=== PATIENT | male | born 1970 | race African-American/Black ===

== ENCOUNTER 2018-05-13 22:36 | Emergency (ER) | payer MEDICAID ==
[~2018-05-13] VITALS: Ht 182.9 cm; Wt 87.5 kg
[2018-05-13] MEDS ORDERED: cloNIDine HCL 0.1 MG TAB ONE (23:03)
[2018-05-13] MEDS ORDERED: cloNIDine HCL 0.1 MG TAB PO ONE (23:15)
[2018-05-14 00:29] LABS: Basophils # (auto) 0.1 uL; Basophils % (auto) 2.8 % (0.0-2.0); Eosinophils # (auto) 0 uL; Hematocrit 47.6 % (41.0-53.0); Hemoglobin 16.1 g/dL (13.5-17.5); Lymphocytes # (auto) 1.5 uL; Lymphocytes % (auto) 33.2 % (10.0-50.0); Mean Corpuscular Hemoglobin 31.3 pg (28.0-32.0); Mean Corpuscular Hgb Conc. 33.8 g/dL (32.0-36.0); Mean Corpuscular Volume 92.6 fL (80.0-100.0); Monocytes # (auto) 0.6 uL; Monocytes % (auto) 13.4 % (0.0-12.0); Neutrophils # (auto) 2.2 uL; Neutrophils % (auto) 49.6 % (37.0-80.0); Nucleated Red Blood Cells % 0.3 %; Platelet Count (auto) 259 10^3/uL (140-450); Red Blood Cells 5.14 10^6/uL (4.5-5.90); White Blood Cell 4.5 10^3/uL (4.4-10.8)
[2018-05-14 00:40] LABS: Alanine Aminotransferase 31 U/L (16-61); Albumin 3.7 g/dL (3.4-5.0); Anion Gap 9 (5-15); Aspartate Aminotransferase 15 U/L (15-37); BUN/Creatinine Ratio 13.4; Blood Urea Nitrogen 16 mg/dL (7-18); Calcium 8.7 mg/dL (8.5-10.1); Carbon Dioxide 27 mmol/L (21-32); Chloride 96 mmol/L (98-107); GFR African American 84 mL/min; GFR Non-African American 69 mL/min; Glucose 302 mg/dL (74-106); Magnesium 2.1 mg/dL (1.6-2.6); Potassium 3.9 mmol/L (3.5-5.1); Sodium 132 mmol/L (136-145)
[2018-05-14 00:44] LABS: Alkaline Phosphatase 75 U/L (45-117); Bilirubin, Total 0.5 mg/dL (0.2-1.0); Total Protein 8.4 g/dL (6.4-8.2)
[2018-05-14] MEDS ORDERED: HYDROcodone-ACET 5/325MG TAB PO ONE (03:30)
[2018-05-14] MEDS ORDERED: SODIUM CHLORIDE 0.9% 1,000 ML IV ONE (03:30)
[2018-05-14] MEDS ORDERED: ONDANSETRON HCL 4 MG/2 ML VIAL IV ONE (03:30)
[2018-05-14 04:39] VITALS: BP 164/84
== END 2018-05-14 04:44 | disposition home or self-care (01) ==
LOC: ER 22:38
DX: S29.9XXA Unspecified injury of thorax, initial encounter (principal); I16.0 Hypertensive urgency; I10 Essential (primary) hypertension; E11.65 Type 2 diabetes mellitus with hyperglycemia; E78.5 Hyperlipidemia, unspecified; Z91.19 Patient's noncompliance with other medical treatment and regimen; W20.8XXA Other cause of strike by thrown, projected or falling object, initial encounter; Y93.89 Activity, other specified; Y92.89 Other specified places as the place of occurrence of the external cause; Y99.8 Other external cause status
CPT/HCPCS: 36415; 71045; 80053; 82962; 83735; 84484; 85025; 93005; 96361; 96374; 99284; J2405; J7030

== ENCOUNTER 2021-07-18 13:49 | Emergency (ER) | payer MEDICAID ==
[~2021-07-18] VITALS: Ht 180.3 cm; Wt 76.2 kg
[2021-07-18] MEDS: cloNIDine HCL 0.1 MG TAB PO ONE ×2 (14:50→18:08)
[2021-07-18] MEDS ORDERED: InsuLIN REG 1unit/0.01ml Soln (100units/ml) IV ONE (15:15)
[2021-07-18 16:05] LABS: Basophils # (auto) 0.1 10 ^3/uL (0-0.2); Basophils % (auto) 1.9 % (0.0-2.0); Eosinophils # (auto) 0 10 ^3/uL (0-0.8); Eosinophils % (auto) 0.7 % (0.0-7.0); Hematocrit 45.5 % (41.0-53.0); Hemoglobin 15.8 g/dL (13.5-17.5); Lymphocytes # (auto) 0.7 10 ^3/uL (0.4-5.4); Lymphocytes % (auto) 16.7 % (10.0-50.0); Mean Corpuscular Hemoglobin 31.7 pg (28.0-32.0); Mean Corpuscular Hgb Conc. 34.7 g/dL (32.0-36.0); Mean Corpuscular Volume 91.2 fL (80.0-100.0); Monocytes # (auto) 0.4 10 ^3/uL (0-1.3); Monocytes % (auto) 8.9 % (0.0-12.0); Neutrophils # (auto) 3.1 10 ^3/uL (1.6-8.6); Neutrophils % (auto) 71.8 % (37.0-80.0); Nucleated Red Blood Cells % 0.1 %; Red Blood Cells 4.98 10^6/uL (4.5-5.90); Red Cell Distribution Width 12.8 % (11.8-14.3); White Blood Cell 4.3 10^3/uL (4.4-10.8)
[2021-07-18 17:42] LABS: Albumin 3.8 g/dL (3.4-5.0); Calcium 9.6 mg/dL (8.5-10.1); Potassium 3.8 mmol/L (3.5-5.1)
[2021-07-18 17:56] LABS: BUN/Creatinine Ratio 13.4; Bilirubin, Total 0.4 mg/dL (0.2-1.0); Total Protein 8.2 g/dL (6.4-8.2)
[2021-07-18 19:09] VITALS: BP 165/90
== END 2021-07-18 19:15 | disposition home or self-care (01) ==
LOC: EDBD 13:49 → ER 13:49
DX: E11.65 Type 2 diabetes mellitus with hyperglycemia (principal); I10 Essential (primary) hypertension; E78.5 Hyperlipidemia, unspecified
CPT/HCPCS: 36415; 36600; 70450; 80053; 82010; 82805; 82962; 84484; 85025; 96374; 99284; J1815; 93005

== ENCOUNTER 2021-09-23 08:14 | Emergency (ER) | payer MEDICAID ==
[~2021-09-23] VITALS: Ht 182.9 cm; Wt 85.3 kg
[2021-09-23] MEDS ORDERED: InsuLIN REG 1unit/0.01ml Soln (100units/ml) IV ONE (08:45)
[2021-09-23] MEDS ORDERED: cloNIDine HCL 0.1 MG TAB PO ONE (08:45)
[2021-09-23] MEDS ORDERED: SODIUM CHLORIDE 0.9% 1,000 ML IV ONE ×2 (08:45)
[2021-09-23 10:15] LABS: Calcium 8.4 mg/dL (8.5-10.1); Potassium 3.8 mmol/L (3.5-5.1)
[2021-09-23 10:19] LABS: Basophils # (auto) 0 10 ^3/uL (0-0.2); Basophils % (auto) 0.5 % (0.0-2.0); Eosinophils # (auto) 0.1 10 ^3/uL (0-0.8); Hematocrit 39.5 % (41.0-53.0); Hemoglobin 13.5 g/dL (13.5-17.5); Lymphocytes # (auto) 0.8 10 ^3/uL (0.4-5.4); Lymphocytes % (auto) 22.7 % (10.0-50.0); Mean Corpuscular Hemoglobin 31.1 pg (28.0-32.0); Mean Corpuscular Hgb Conc. 34.2 g/dL (32.0-36.0); Mean Corpuscular Volume 90.8 fL (80.0-100.0); Monocytes # (auto) 0.4 10 ^3/uL (0-1.3); Monocytes % (auto) 11.5 % (0.0-12.0); Neutrophils # (auto) 2.3 10 ^3/uL (1.6-8.6); Neutrophils % (auto) 63.3 % (37.0-80.0); Nucleated Red Blood Cells % 0.2 %; Red Blood Cells 4.35 10^6/uL (4.5-5.90); Red Cell Distribution Width 13.6 % (11.8-14.3); White Blood Cell 3.6 10^3/uL (4.4-10.8)
[2021-09-23 10:21] LABS: Albumin 3.1 g/dL (3.4-5.0); BUN/Creatinine Ratio 14.9; Bilirubin, Total 0.6 mg/dL (0.2-1.0); Total Protein 6.9 g/dL (6.4-8.2)
[2021-09-23 11:03] VITALS: BP 144/92
== END 2021-09-23 11:02 | disposition home or self-care (01) ==
LOC: ER 08:14
DX: I16.0 Hypertensive urgency (principal); E78.5 Hyperlipidemia, unspecified; E46 Unspecified protein-calorie malnutrition; E11.65 Type 2 diabetes mellitus with hyperglycemia; I25.2 Old myocardial infarction; Z68.25 Body mass index [BMI] 25.0-25.9, adult; Z86.73 Personal history of transient ischemic attack (TIA), and cerebral infarction without residual deficits
CPT/HCPCS: 36415; 80053; 84484; 85025; 93005; 96361; 96374; 99285; J1815; J7030

== ENCOUNTER 2021-10-04 10:35 | Emergency (ER) | payer MEDICAID ==
[~2021-10-04] VITALS: Ht 182.9 cm; Wt 81.6 kg
[2021-10-04] MEDS ORDERED: LABETALOL HCL 5 MG/ML 4ML SYRINGE IV ONE (14:00)
[2021-10-04] MEDS ORDERED: SODIUM CHLORIDE 0.9% 1,000 ML IV ONE (14:00)
[2021-10-04] MEDS ORDERED: SODIUM CHLORIDE 0.9% 500 ML IVB ONE (14:00)
[2021-10-04] MEDS ORDERED: PROCHLORPERAZINE EDISYLATE 5 MG/ML 2ML VIAL IV ONE (14:00)
[2021-10-04 15:03] LABS: Basophils # (auto) 0.1 10 ^3/uL (0-0.2); Basophils % (auto) 0.9 % (0.0-2.0); Eosinophils # (auto) 0 10 ^3/uL (0-0.8); Hematocrit 45.2 % (41.0-53.0); Hemoglobin 15.5 g/dL (13.5-17.5); Lymphocytes # (auto) 0.6 10 ^3/uL (0.4-5.4); Lymphocytes % (auto) 8.4 % (10.0-50.0); Mean Corpuscular Hemoglobin 31.4 pg (28.0-32.0); Mean Corpuscular Hgb Conc. 34.3 g/dL (32.0-36.0); Mean Corpuscular Volume 91.5 fL (80.0-100.0); Monocytes # (auto) 0.3 10 ^3/uL (0-1.3); Monocytes % (auto) 4.3 % (0.0-12.0); Neutrophils # (auto) 6.4 10 ^3/uL (1.6-8.6); Neutrophils % (auto) 86.4 % (37.0-80.0); Nucleated Red Blood Cells % 0.1 %; Red Blood Cells 4.94 10^6/uL (4.5-5.90); White Blood Cell 7.4 10^3/uL (4.4-10.8)
[2021-10-04 15:05] VITALS: BP 158/90
[2021-10-04 15:25] LABS: BUN/Creatinine Ratio 15.9; Magnesium 2.5 mg/dL (1.6-2.6)
[2021-10-04 15:41] LABS: Bilirubin, Total 0.7 mg/dL (0.2-1.0); Total Protein 8.8 g/dL (6.4-8.2)
[2021-10-04 16:22] LABS: Potassium 4.8 mmol/L (3.5-5.1)
== END 2021-10-04 16:18 | disposition left against medical advice (07) ==
LOC: ER 10:35
DX: R11.2 Nausea with vomiting, unspecified (principal); I10 Essential (primary) hypertension; E11.65 Type 2 diabetes mellitus with hyperglycemia; I25.2 Old myocardial infarction; E78.5 Hyperlipidemia, unspecified; Z86.73 Personal history of transient ischemic attack (TIA), and cerebral infarction without residual deficits
CPT/HCPCS: 36415; 71046; 80053; 82962; 83690; 83735; 84443; 85025; 93005; 96361; 96374; 96375; 99285; J0780; J3490; J7040

== ENCOUNTER 2022-01-02 00:30 | Emergency (ER) | payer MEDICAID | END 2022-01-02 01:20 | disposition left against medical advice (07) | LOC: ER 00:30 | DX: R07.81 Pleurodynia (principal); Z53.21 Procedure and treatment not carried out due to patient leaving prior to being seen by health care provider ==

== ENCOUNTER 2022-03-17 05:58 | Emergency (ER) | payer MEDICAID ==
[~2022-03-17] VITALS: Ht 182.9 cm; Wt 71.4 kg
[2022-03-17 06:45] LABS: Urine WBC None Seen /hpf (0 - 3)
[2022-03-17 06:53] LABS: Urine Bacteria NONE SEEN /hpf (None Seen); Urine Blood Negative /uL (Negative); Urine Specific Gravity 1.038 (1.001-1.035)
[2022-03-17] MEDS ORDERED: SODIUM CHLORIDE 0.9% 1,000 ML IVB ONE (07:30)
[2022-03-17] MEDS ORDERED: ONDANSETRON HCL 4 MG/2 ML VIAL IV ONE (07:30)
[2022-03-17 07:32] LABS: Albumin 3.9 g/dL (3.4-5.0); Basophils # (auto) 0 10 ^3/uL (0-0.2); Basophils % (auto) 0.6 % (0.0-2.0); Calcium 9.2 mg/dL (8.5-10.1); Eosinophils # (auto) 0 10 ^3/uL (0-0.8); Hematocrit 43.8 % (41.0-53.0); Hemoglobin 14.9 g/dL (13.5-17.5); Lymphocytes # (auto) 0.6 10 ^3/uL (0.4-5.4); Lymphocytes % (auto) 11.9 % (10.0-50.0); Mean Corpuscular Hemoglobin 30.2 pg (28.0-32.0); Mean Corpuscular Hgb Conc. 33.9 g/dL (32.0-36.0); Monocytes # (auto) 0.3 10 ^3/uL (0-1.3); Monocytes % (auto) 5.6 % (0.0-12.0); Neutrophils # (auto) 4.4 10 ^3/uL (1.6-8.6); Neutrophils % (auto) 81.9 % (37.0-80.0); Nucleated Red Blood Cells % 0.3 %; Potassium 4.1 mmol/L (3.5-5.1); Red Blood Cells 4.92 10^6/uL (4.5-5.90); Red Cell Distribution Width 14.3 % (11.8-14.3); White Blood Cell 5.4 10^3/uL (4.4-10.8)
[2022-03-17 07:36] LABS: BUN/Creatinine Ratio 11.8; Bilirubin, Total 1.1 mg/dL (0.2-1.0)
[2022-03-17 08:01] LABS: Magnesium 2.1 mg/dL (1.6-2.6)
[2022-03-17] MEDS ORDERED: ONDANSETRON HCL 4 MG/2 ML VIAL ONE (08:07)
[2022-03-17 09:59] VITALS: BP 149/84
== END 2022-03-17 10:02 | disposition home or self-care (01) ==
LOC: ER 05:58
DX: E11.65 Type 2 diabetes mellitus with hyperglycemia (principal); I10 Essential (primary) hypertension; I25.2 Old myocardial infarction; Z98.61 Coronary angioplasty status; Z53.29 Procedure and treatment not carried out because of patient's decision for other reasons; Z86.73 Personal history of transient ischemic attack (TIA), and cerebral infarction without residual deficits
CPT/HCPCS: 36415; 71046; 80053; 81001; 83690; 83735; 84484; 85025; 93005; 96361; 96374; 99285; J2405; J7030

== ENCOUNTER 2022-09-18 07:23 | Emergency (ER) | payer MEDICAID ==
[~2022-09-18] VITALS: Ht 182.9 cm; Wt 76.0 kg
[2022-09-18 08:06] LABS: Basophils # (auto) 0.1 10 ^3/uL (0-0.2); Eosinophils # (auto) 0 10 ^3/uL (0-0.8); Eosinophils % (auto) 0.4 % (0.0-7.0); Hematocrit 46.2 % (41.0-53.0); Lymphocytes # (auto) 1.2 10 ^3/uL (0.4-5.4); Lymphocytes % (auto) 25.1 % (10.0-50.0); Mean Corpuscular Hemoglobin 31.3 pg (28.0-32.0); Mean Corpuscular Hgb Conc. 34.6 g/dL (32.0-36.0); Mean Corpuscular Volume 90.6 fL (80.0-100.0); Monocytes # (auto) 0.5 10 ^3/uL (0-1.3); Monocytes % (auto) 10.2 % (0.0-12.0); Neutrophils # (auto) 3.1 10 ^3/uL (1.6-8.6); Neutrophils % (auto) 63.3 % (37.0-80.0); Nucleated Red Blood Cells % 0.5 %; Red Cell Distribution Width 14.3 % (11.8-14.3); White Blood Cell 4.8 10^3/uL (4.4-10.8)
[2022-09-18] MEDS ORDERED: ONDANSETRON HCL 4 MG/2 ML VIAL IV ONE (08:15)
[2022-09-18] MEDS ORDERED: MORPHINE SULFATE 4 MG/ML SYR/VIAL IV ONE (08:15)
[2022-09-18] MEDS ORDERED: SODIUM CHLORIDE 0.9% 1,000 ML IVB ONE (08:15)
[2022-09-18] MEDS ORDERED: SODIUM CHLORIDE 0.9% 1,000 ML IV ONE (08:15)
[2022-09-18] MEDS ORDERED: THIAMINE 100mg/ml INJ (200mg/2ml VIAL) IV ONE (08:15)
[2022-09-18 08:21] LABS: Albumin 3.6 g/dL (3.4-5.0); Calcium 9.1 mg/dL (8.5-10.1); Potassium 3.1 mmol/L (3.5-5.1)
[2022-09-18 08:24] LABS: BUN/Creatinine Ratio 16.7 (10.0-20.0); Total Protein 7.9 g/dL (6.4-8.2)
[2022-09-18 08:31] LABS: Alcohol, Urine < 3.0 mg/dL (0-10); Amphetamine Screen, Urine NEGATIVE (NEGATIVE); Barbiturate Scree,Urine NEGATIVE (NEGATIVE); Benzodiazephine Screen, Urine NEGATIVE (NEGATIVE); Cannabinoid Screen, Urine NEGATIVE (NEGATIVE); Cocaine Screen, Urine NEGATIVE (NEGATIVE); Opiate Scree,Urine NEGATIVE (NEGATIVE); Phencyclidine Screen, Urine NEGATIVE (NEGATIVE)
[2022-09-18 10:00] VITALS: BP 110/72
[2022-09-18] MEDS ORDERED: POTASSIUM EFFERVESENT TAB 25 MEQ PO ONE (10:15)
== END 2022-09-18 12:36 | disposition home or self-care (01) ==
LOC: ER 07:23
DX: R10.84 Generalized abdominal pain (principal); R11.2 Nausea with vomiting, unspecified; E11.9 Type 2 diabetes mellitus without complications; E78.5 Hyperlipidemia, unspecified; I10 Essential (primary) hypertension; Z86.73 Personal history of transient ischemic attack (TIA), and cerebral infarction without residual deficits; Z79.899 Other long term (current) drug therapy
CPT/HCPCS: 36415; 74176; 80053; 80307; 83690; 85025; 96361; 96374; 96375; 99285; J2270; J2405; J3411; J7030

== ENCOUNTER 2024-11-16 08:24 | Inpatient (IN) | payer MEDICAID ==
[~2024-11-16] VITALS: Ht 182.9 cm; Wt 86.1 kg
[2024-11-16 09:02] VITALS: RESP 18; O2SAT 98
[2024-11-16 09:18] LABS: Urine Bacteria None Seen /hpf (None Seen)
--- NOTE | 2024-11-16 09:21 | ED.PDOC ---
History of Present Illness HPI Comments 54-year-old male presents to the ER with prior care history of hypertension, AFib, diabetes, mi, TIA; surgical history of PTCA x2, bilateral eye surgery in the chief complaint of lower extremity swelling. Patient reports on having bilateral lower extremity swelling for the past two days, patient states on the left lower extremity having more swelling than the right. Patient had a blood sugar of 367 in triage. Denies chills, fever, N/V/D, SOB, CP. No other associated symptoms, modifiers, recent injuries or sick contacts present at this time. Chief Complaint: Extremity Swelling Time Seen by MD: 08:55 Primary Care Provider: ? Reviewed Notes: Nurses Notes, Medications, Allergies Allergies: Coded Allergies: NO KNOWN ALLERGIES (Unverified , 10/16/15) Information Source: Patient Mode of Arrival: Ambulatory Severity: Moderate Timing: Days Duration: Since onset Prehospital treatment: None Past Medical History PAST MEDICAL HISTORY: AFIB, DM, High Lipids, HTN, ME, TIA Surgical History: PTCA (X2) Surgical History (Other): Bilateral IH surgery Family History Family History: Reviewed,noncontributory to illness, Unknown Social History Smoker: Non-Smoker Alcohol: Occasionally Drugs: Denies Drug Use Lives In: Home Constitutional: denies: chills, diaphoresis, fatigue, fever, malaise, sweats, weakness, others EENTM: denies: blurred vision, double vision, ear bleeding, ear discharge, ear drainage, ear pain, ear ringing, eye pain, eye redness, hearing loss, mouth pain, mouth swelling, nasal discharge, nose bleeding, nose congestion, nose pain, photophobia, tearing, throat pain, throat swelling, voice changes, others Respiratory: denies: cough, hemoptysis, orthopnea, SOB at rest, shortness of breath, SOB with excertion, stridor, wheezing, others Cardiovascular: reports: edema (Bilateral); denies: chest pain, dizzy spells, diaphoresis, Dyspnea on exertion, irregular heart beat, left arm pain, lighthea dedness, palpitations, PND, syncope, others Gastrointestinal: denies: abdomen distended, abdominal pain, blood streaked bowels, constipated, diarrhea, dysphagia, difficulty swallowing, hematemesis, melena, nausea, poor appetite, poor fluid intake, rectal bleeding, rectal pain, vomiting, others Genitourinary: denies: burning, dysuria, flank pain, frequency, hematuria, incontinence, penile discharge, penile sore, pain, testicle pain, testicle swelling, urgency, others Neurological: denies: dizziness, fainting, headache, left sided numbness, left sided weakness, numbness, paresthesia, pre-existing deficit, right sided numbness, right sided weakness, seizure, speech problems, tingling, tremors, we akness, others Musculoskeletal: denies: back pain, gout, joint pain, joint swelling, muscle pain, muscle stiffness, neck pain, others Integumetry: denies: bruises, change in color, change in hair/nails, dryness, laceration, lesions, lumps, rash, wounds, others Allergic/Immunocompromised: denies: Difficulty Healing, Frequent Infections, Hives, Itching, others Hematologic/Lymphatic: denies: anemia, blood clots, easy bleeding, easy bruising, swollen glands, others Endocrine: denies: excessive hunger, excessive sweating, excessive thirst, excessive urination, flushing, intolerance to cold, intolerance to heat, unexplained weight gain, unexplained weight loss, others Psychiatric: denies: anxiety, bipolar disorder, depression, hopeless, panic disorder, schizophrenia, sleepless, suicidal, others All Other Systems: Reviewed and Negative Physical Exam General Appearance: No Apparent Distress, Normal HEENT: Normal ENT Inspection, Pharynx Normal, TMs Normal Neck: Full Range of Motion, Non-Tender, Normal, Normal Inspection Respiratory: Chest Non-Tender, Lungs Clear, No Accessory Muscle Use, No Respiratory Distress, Normal Breath Sounds Cardiovascular: No Edema, No JVD, No Murmur, No Gallop, Normal Peripheral Pulses, Regular Rate/Rhythm Breast Exam: Deferred Gastrointestinal: No Organomegaly, Non Tender, No Pulsatile Mass, Normal Bowel Sounds, Soft Genitalia: Deferred Pelvic: Deferred Rectal: Deferred Extremities: No calf tenderness, Normal capillary refill, Normal inspection, Normal range of motion, Non-tender, No pedal edema Musculoskeletal : Apperance: Normal Neurologic: Alert, eyeglass cutter II-XII nml as Tested, No Motor Deficits, Normal Affect, Normal Mood, No Sensory Deficits Cerebellar Function: Normal Reflexes: Normal Skin: Dry, Normal Color, Warm Lymphatic: No Adenopathy Was a procedure done? Was a procedure done?: No EKG EKG : Pulse Rate (adult): 64 [place]: Normal Cardiac Rhythm: Afib Block: None Hypertrophy: None ST: Normal Differential Dx Considerations may include: Migraine, hypertensive emergency, ACS, electrolyte abnormality. X-Ray, Labs, Meds, VS Vital Signs Date Time Temp Pulse Resp B/P (MAP) Pulse Ox O2 Delivery O2 Flow Rate FiO2 11/16/24 09:21 64 11/16/24 09:02 18 98 Room Air* 0 21 11/16/24 08:44 97.8 65 18 208/99 (135) 97 97.8 168/115 (132) 11/16/24 08:44 97.8 65 18 168/115 (132) 97 97.8 11/16/24 08:42 64 Lab Test 11/16/24 09:51 11/16/24 08:56 11/16/24 08:52 11/16/24 08:38 Range/Units Troponin I High Sensitivity 33 36 </=54 ng/L White Blood Count 4.0 L 4.4-10.8 10^3/uL Red Blood Count 4.96 4.5-5.90 10^6/uL Hemoglobin 15.9 13.5-17.5 g/dL Hematocrit 45.9 41.0-53.0 % Mean Corpuscular Volume 92.6 80.0-100.0 fL Mean Corpuscular Hemoglobin 32.1 H 28.0-32.0 pg Mean Corpuscular Hemoglobin Concent 34.6 32.0-36.0 g/dL Red Cell Distribution Width 13.9 11.8-14.3 % Platelet Count 287 140-450 10^3/uL Mean Platelet Volume 8.9 6.9-10.8 fL Neutrophils (%) (Auto) 53.3 37.0-80.0 % Lymphocytes (%) (Auto) 30.1 10.0-50.0 % Monocytes (%) (Auto) 12.5 H 0.0-12.0 % Eosinophils (%) (Auto) 1.6 0.0-7.0 % Basophils (%) (Auto) 2.5 H 0.0-2.0 % Neutrophils # (Auto) 2.2 1.6-8.6 10 ^3/uL Lymphocytes # (Auto) 1.2 0.4-5.4 10 ^3/uL Monocytes # (Auto) 0.5 0-1.3 10 ^3/uL Eosinophils # (Auto) 0.1 0-0.8 10 ^3/uL Basophils # (Auto) 0.1 0-0.2 10 ^3/uL Nucleated Red Blood Cells 0.2 % Sodium Level 138 136-145 mmol/L Potassium Level 4.0 3.5-5.1 mmol/L Chloride Level 100 98-107 mmol/L Carbon Dioxide Level 27 20-31 mmol/L Anion Gap 11 5-15 Blood Urea Nitrogen 9 9-23 mg/dL Creatinine 1.30 0.700-1.30 mg/dL Glomerular Filtration Rate Calc 64 >90 mL/min BUN/Creatinine Ratio 6.9 L 10.0-20.0 Serum Glucose 360 H 74-106 mg/dL Calcium Level 10.4 8.7-10.4 mg/dL Urine Color Colorless Yellow Urine Clarity Clear Clear Urine pH 7.5 5.0-9.[address] 1.012 1.001-1.035 Urine Protein 1+ H Negative Urine Ketones Trace Negative Urine Blood Trace H Negative /uL Urine Nitrite Negative Negative Urine Bilirubin Negative Negative Urine Urobilinogen Normal Negative mg/dL Urine Leukocyte Esterase Negative Negative /uL Urine RBC 2 0 - 3 /hpf Urine Microscopic WBC 1 0-3 /HPF Urine Squamous Epithelial Cells None seen <5 /hpf Urine Bacteria None seen None Seen /hpf Urine Glucose 4+ H Normal mg/dL POC Glucose 367 H 70-106 mg/dl Time of 1ST Reevaluation: 09:25 Reevaluation 1ST: Unchanged Patient Education/Counseling: Diagnosis, Treatment, Prognosis Family Education/Counseling: No Family Present Departure 1 Departure Time of Disposition: 10:29 (Patient presented with hypertension and symptoms concerning for hypertensive emergency. Patient is receiving iv blood pressure medications requiring intensive monitoring. Data: 1. I ordered and reviewed the result of at least 3 labs including a CBC, BMP, and Urinalysis. 2. I independently interpreted the following tests: Chest x-ray is concerning for vascular congestion. EKG which is Normal Sinus RhythmRisk:This patient has a high risk of morbidity due to further diagnostic testing or treatment and may suffer from an acute cardiac disorder. Workup reveals hypertensive emergency and patient should be admitted for further workup. and possible expert consultation. ) Impression: Primary Impression: Hypertensive urgency Additional Impressions: Generalized weakness Uncontrolled diabetes mellitus Qualified Codes: E11.65 - Type 2 diabetes mellitus with hyperglycemia Disposition: ADMITTED INPATIENT Admit to: Med Surg Condition: Serious Critical Care Note Critical Care Time?: Yes Critical care comment: Hypertensive urgency Authorized and Performed by: Nubia Gannon MD Total critical care time: Approximately 39 minutes Due to a high probability of clinically significant, life threatening deterioration, the patient required my highest level of preparedness to intervene emergently and I personally spent this critical care time directly and personally managing the patient. This critical care time included obtaining a history; examining the patient; pulse oximetry; ordering and review of studies; arranging urgent treatment with development of a management plan; evaluation of patient's response to treatment; frequent reassessment; and, discussions with other providers. This critical care time was performed to assess and manage the high probability of imminent, life-threatening deterioration that could result in multi-organ failure. It was exclusive of separately billable procedures and treating other patients and teaching time. Please see my other sections and the rest of the note for further information on patient assessment and treatment. Stability Stability form required: No I personally scribed for NUBIA GANNON MD ([email or web address]) on 11/16/24 at 09:21. Elec tronically submitted by Lawrence Bowden ([email or web address]). NUBIA GANNON MD Nov 16, 2024 09:21
[2024-11-16 09:25] LABS: Basophils # (auto) 0.1 10 ^3/uL (0-0.2); Basophils % (auto) 2.5 % (0.0-2.0); Eosinophils # (auto) 0.1 10 ^3/uL (0-0.8); Eosinophils % (auto) 1.6 % (0.0-7.0); Hematocrit 45.9 % (41.0-53.0); Hemoglobin 15.9 g/dL (13.5-17.5); Lymphocytes # (auto) 1.2 10 ^3/uL (0.4-5.4); Lymphocytes % (auto) 30.1 % (10.0-50.0); Mean Corpuscular Hemoglobin 32.1 pg (28.0-32.0); Mean Corpuscular Hgb Conc. 34.6 g/dL (32.0-36.0); Mean Corpuscular Volume 92.6 fL (80.0-100.0); Monocytes # (auto) 0.5 10 ^3/uL (0-1.3); Monocytes % (auto) 12.5 % (0.0-12.0); Neutrophils # (auto) 2.2 10 ^3/uL (1.6-8.6); Neutrophils % (auto) 53.3 % (37.0-80.0); Nucleated Red Blood Cells % 0.2 %; Platelet Count (auto) 287 10^3/uL (140-450); Red Blood Cells 4.96 10^6/uL (4.5-5.90); Red Cell Distribution Width 13.9 % (11.8-14.3)
--- NOTE | 2024-11-16 09:27 | DVH ---
EXAM: XY CHEST PORTABLE HISTORY: lower extremity swelling COMPARISON: Comparison is made with report of chest x-ray dated 03/17/2022, although no images were m katia available for viewing. TECHNIQUE: Portable AP view of the chest was performed. FINDINGS: Lung volumes are somewhat low. There is mild interstitial prominence. No pneumothorax or consolidativ e infiltrates. The heart is not enlarged. IMPRESSION: Mild interstitial prominence may be due to reactive airways disease or mild CHF. This appearance may be exaggerated by low lung volumes.
[2024-11-16 09:31] LABS: Chloride 100 mmol/L (98-107); Sodium 138 mmol/L (136-145)
[2024-11-16 09:32] LABS: Anion Gap 11 (5-15); Carbon Dioxide 27 mmol/L (20-31)
[2024-11-16 09:33] LABS: Calcium 10.4 mg/dL (8.7-10.4)
[2024-11-16 09:37] LABS: BUN/Creatinine Ratio 6.9 (10.0-20.0); Blood Urea Nitrogen 9 mg/dL (9-23); Glucose 360 mg/dL (74-106)
[2024-11-16 09:37] LABS: Urine Blood TRACE /uL (Negative); Urine Clarity Clear (Clear); Urine Color Colorless (Yellow); Urine Protein, UAD 1+ (Negative); Urine Specific Gravity 1.012 (1.001-1.035); Urine Squamous Epithelial Cell None Seen /hpf (<5); Urine Urobilinogen Normal (Negative); Urine WBC 1 /HPF (0-3); Urine pH 7.5 (5.0-9.0)
[2024-11-16] MEDS ORDERED: LISI-285 PO (10:43)
[2024-11-16] MEDS ORDERED: AMLO1TAB23 PO (10:43)
[2024-11-16] MEDS ORDERED: SITA100T7 PO (10:43)
[2024-11-16] MEDS ORDERED: [UNRECOGNIZED DRUG - CODE] PO (10:43)
[2024-11-16] MEDS ORDERED: ATOR40TA52 PO (10:43)
[2024-11-16] MEDS ORDERED: ASPI-325 PO (10:43)
[2024-11-16] MEDS ORDERED: METO-289 PO (10:43)
[2024-11-16] MEDS: hydrALAZINE HCL 20 MG/ML VL IV ONE (11:13)
[2024-11-16] MEDS: InsuLIN REG 1unit/0.01ml Soln (100units/ml) IV ONE (11:20)
[2024-11-16] MEDS ORDERED: MORPHINE SULFATE INJ 2 MG/ml SYRG IV PRN (12:30)
[2024-11-16] MEDS ORDERED: NITROGLYCERIN 0.4 MG SL TAB SL PRN (12:30)
[2024-11-16] MEDS ORDERED: HYDROcodone-ACET 5/325MG TAB PO PRN (12:30)
[2024-11-16] MEDS ORDERED: ACETAMINOPHEN 325 MG TAB PO PRN (12:30)
[2024-11-16] MEDS ORDERED: DOCUSATE SOD 100 MG CAP PO PRN (12:30)
[2024-11-16] MEDS ORDERED: ONDANSETRON HCL 4 MG/2 ML VIAL IV PRN (12:30)
[2024-11-16] MEDS ORDERED: [UNRECOGNIZED DRUG - CODE] SUBCUT (12:31)
--- NOTE | 2024-11-16 12:44 | DVHHP2 ---
History of Present Illness Reason for Visit: Lower extremity swelling History of Present Illness Vishal Bernard is a 54-year-old male with past medical history of hypertension, hyperlipidemia, ME, diabetes, and TIA who came to the hospital for bilateral lower extremity swelling. Patient states his legs began to swelling about 3 days ago. He states he does not like taking medications daily so he takes them 3-4 times a week. On the day he does not take his medications he takes natural, home remedies. Cardiovascular: HTN, ME, hyperipidemia Endocrine: Diabetes Past Surgical History: Other (PTCA 2006-2 cardiac stents placed) Smoke: No ALCOHOL: heavy Drugs: None Lives: with Family Domestic Violence: Neg Review of Systems Constitutional: No: Fever, Chills, Sweats, Weakness, Malaise, Other Eyes: No: Pain, Vision change, Conjunctivae inflammation, Eyelid inflammation, Other, Redness ENT: No: Ear pain, Ear discharge, Nose pain, Nose discharge, Nose congestion, Mouth pain, Mouth swelling, Throat pain, Throat swelling, Other Respiratory: No: Cough, Dry, Shortness of breath, SOB with excertion, Wheezing, Hemoptysis, Pleuritic Pain, Sputum, Wheezing, Other Cardiovascular: Edema (bilateral lower extremities); No: Chest Pain, Palpitations, Orthopnea, Paroxysmal Noc. Dyspnea, Lt Headedness, Other Gastrointestinal: No: Nausea, Vomiting, Abdominal Pain, Diarrhea, Constipation, Melena, Hematochezia, Other Genitourinary: No Dysuria, No Frequency, No Incontinence, No Hematuria, No Retention, No Other Musculoskeletal: No: other, neck pain, shoulder pain, arm pain, back pain, hand pain, leg pain, foot pain Skin: No: Rash, Lesions, Jaundice, Bruising, Other Neurological: No: Weakness, Numbness, Incoordination, Change in speech, Confusion, Seizures, Other Allergies: Coded Allergies: NO KNOWN ALLERGIES (Unverified , 10/16/15) Medications Current Medications Medications Dose Ordered Sig/Cory Route Start Time Stop Time Status Last Admin Dose Admin Sodium Chloride 10 ml Q8HR IV 11/16/24 14:00 UNV Acetaminophen/ Hydrocodone Bitart 1 tab Q4HP PRN PO 11/16/24 12:30 UNV Ondansetron HCl 4 mg Q4HP PRN IV 11/16/24 12:30 UNV Docusate Sodium 100 mg BIDPRN PRN PO 11/16/24 12:30 UNV Acetaminophen 650 mg Q6HP PRN PO 11/16/24 12:30 UNV Nitroglycerin 0.4 mg Q5MINP PRN SL 11/16/24 12:30 UNV Morphine Sulfate 2 mg Q30M PRN IV 11/16/24 12:30 UNV Exam Vital Signs Vital Signs Date Time Temp Pulse Resp B/P (MAP) Pulse Ox O2 Delivery O2 Flow Rate FiO2 11/16/24 11:13 205/95 11/16/24 11:02 98.6 58 16 95 98.6 11/16/24 09:02 Room Air* 0 21 General Appearance: Alert, Oriented X3, Cooperative, mild distress HEENT: Atraumatic, PERRLA Respiratory: Clear to auscultation, Normal air movement Cardiovascular: Regular rate, Normal S1, Normal S2, No murmurs Abdominal: Normal bowel sounds, Soft, No tenderness, No hepatospenomegaly Extremities: No clubbing, No cyanosis, Normal pulses, No tenderness/swelling, Other (bilateral lower extremity edema) Skin: No rashes, No breakdown, No significant lesion Neuro: Normal gait, Normal speech, Strength at 5/5 X4 ext Psych/Mental Status: Mental status NL Labs/Xrays Labs Test 11/16/24 11:50 11/16/24 11:08 11/16/24 08:56 11/16/24 08:52 Range/Units Troponin I High Sensitivity 31 </=54 ng/L POC Glucose 321 H 70-106 mg/dl White Blood Count 4.0 L 4.4-10.8 10^3/uL Red Blood Count 4.96 4.5-5.90 10^6/uL Hemoglobin 15.9 13.5-17.5 g/dL Hematocrit 45.9 41.0-53.0 % Mean Corpuscular Volume 92.6 80.0-100.0 fL Mean Corpuscular Hemoglobin 32.1 H 28.0-32.0 pg Mean Corpuscular Hemoglobin Concent 34.6 32.0-36.0 g/dL Red Cell Distribution Width 13.9 11.8-14.3 % Platelet Count 287 140-450 10^3/uL Mean Platelet Volume 8.9 6.9-10.8 fL Neutrophils (%) (Auto) 53.3 37.0-80.0 % Lymphocytes (%) (Auto) 30.1 10.0-50.0 % Monocytes (%) (Auto) 12.5 H 0.0-12.0 % Eosinophils (%) (Auto) 1.6 0.0-7.0 % Basophils (%) (Auto) 2.5 H 0.0-2.0 % Neutrophils # (Auto) 2.2 1.6-8.6 10 ^3/uL Lymphocytes # (Auto) 1.2 0.4-5.4 10 ^3/uL Monocytes # (Auto) 0.5 0-1.3 10 ^3/uL Eosinophils # (Auto) 0.1 0-0.8 10 ^3/uL Basophils # (Auto) 0.1 0-0.2 10 ^3/uL Nucleated Red Blood Cells 0.2 % Sodium Level 138 136-145 mmol/L Potassium Level 4.0 3.5-5.1 mmol/L Chloride Level 100 98-107 mmol/L Carbon Dioxide Level 27 20-31 mmol/L Anion Gap 11 5-15 Blood Urea Nitrogen 9 9-23 mg/dL Creatinine 1.30 0.700-1.30 mg/dL Glomerular Filtration Rate Calc 64 >90 mL/min BUN/Creatinine Ratio 6.9 L 10.0-20.0 Serum Glucose 360 H 74-106 mg/dL Calcium Level 10.4 8.7-10.4 mg/dL Urine Color Colorless Yellow Urine Clarity Clear Clear Urine pH 7.5 5.0-9.0 Urine Specific [place] 1.012 1.001-1.035 Urine Protein 1+ H Negative Urine Ketones Trace Negative Urine Blood Trace H Negative /uL Urine Nitrite Negative Negative Urine Bilirubin Negative Negative Urine Urobilinogen Normal Negative mg/dL Urine Leukocyte Esterase Negative Negative /uL Urine RBC 2 0 - 3 /hpf Urine Microscopic WBC 1 0-3 /HPF Urine Squamous Epithelial Cells None seen <5 /hpf Urine Bacteria None seen None Seen /hpf Urine Glucose 4+ H Normal mg/dL EXAM: XY CHEST PORTABLE FINDINGS: Lung volumes are somewhat low. There is mild interstitial prominence. No pneumothorax or consolidative infiltrates. The heart is not enlarged. IMPRESSION: Mild interstitial prominence may be due to reactive airways disease or mild CHF. This appearance may be exaggerated by low lung volumes. Assessment/Plan Assessment/Plan Assessment: Hypertensive urgency, Uncontrolled diabetes, Hyperlipidemia, Plan: Admit to Tele, ECHO, IV Lasix, Consider cardiology consult, Accu checks Q AC&HS with sliding scale, A1c, Home medications reconciled, Plan discussed with: Patient My Orders Orders - DANIELITO AGUILA Procedure Category Date Status Time Admit ADMIT 11/16/24 Transmitted 12:16 Code Status CODE 11/16/24 Transmitted 12:16 Sodium Chloride Lock PHA 11/16/24 Logged (Saline Lock Ns) 14:00 Hydrocodone-Acet PHA 11/16/24 Logged 5/325mg Tab (Nabb 12:30 Ondansetron Hcl PHA 11/16/24 Logged (Zofran) 12:30 Docusate Sodium PHA 11/16/24 Logged Capsule (Colace 12:30 Complete Blood Count LAB 11/17/24 Verified 04:00 Comprehensive LAB 11/17/24 Verified Metabolic Panel 04:00 Cardiac DIET 11/16/24 Transmitted Diet-2gna,Lofat,Lochol Lunch Condition: Critical [facility] 11/16/24 In Process 12:[address] [facility] 11/16/24 Logged (Tylenol Tablet) 12:30 Nitroglycerin PHA 11/16/24 Logged Sublingual (Ntrostat 12:30 Morphine Sulfate PHA 11/16/24 Logged Injection 12:30 Stat Ekg For Chest [facility] 11/16/24 In Process Pain 12:16 Notify Md Of Changes [facility] 11/16/24 In Process From Base 12:16 Centrifugal Separator For [facility] 11/16/24 In Process 24 Hours 12:16 Emergency Dysrhythmia [facility] 11/16/24 In Process Protocol 12:16 Rhythm Strips Once [facility] 11/16/24 In Process Every Shift 12:16 Oxygen By Nasal RT 11/16/24 Transmitted Cannula 12:16 Echo 2d Mode Cardiac US 11/16/24 Logged DOP 12:16 Date of Service: Nov 16, 2024 Billing Provider: DANIELITO AGUILA Common Visit Codes: [id number] INP/OBS CARE (MOD) DANIELITO AGUILA Nov 16, 2024 12:44
[2024-11-16] MEDS ORDERED: DEXTROSE (50%) 50ML SYRG IV PRN (12:45)
[2024-11-16] MEDS ORDERED: MORPHINE SULFATE 4 MG/ML SYR/VIAL IV PRN (13:00)
[2024-11-16] MEDS: FUROSEMIDE 40 MG/4 ML VIAL IV ONE (13:16)
[2024-11-16] MEDS: SODIUM CHLOR 0.9% PF (SALINE LOCK) 10ML VIAL/SYR IV SCH (14:19)
[2024-11-16] MEDS: cloNIDine HCL 0.1 MG TAB PO ONE (15:38)
[2024-11-16] MEDS: ACCU-CHEK COMFORT CURVE STRIP VI SCH (17:05)
[2024-11-16] MEDS: InsuLIN REG 1unit/0.01ml Soln (100units/ml) SC SCH ×2 (17:20→22:00)
[2024-11-16] MEDS: hydrALAZINE HCL 25 MG TAB PO PRN (17:34)
[2024-11-16 18:15] VITALS: BP 167/76; PULSE 60; RESP 18; TEMP 97.4; O2SAT 98
[2024-11-16 20:00] VITALS: PULSE 53; PULSE 64; RESP 18; O2SAT 98
[2024-11-16 21:00] VITALS: BP 151/90; PULSE 64; RESP 18; TEMP 97.3; O2SAT 98
[2024-11-16] MEDS ORDERED: PATIENTS OWN MEDICATION (Atorvastatin Calcium 1 TAB) PO SCH (22:00)
[2024-11-16] MEDS: ATORVASTATIN 20 MG TAB PO SCH (22:02)
[2024-11-16] MEDS: METOPROLOL SUCCINATE XL 50 MG TAB PO SCH (22:03)
[2024-11-17] VITALS (10 sets, daily range): BP systolic 119–178; BP diastolic 67–99; PULSE 48–69; RESP 16–18; TEMP 97.3–98.1; O2SAT 97–99
[2024-11-17] MEDS: MELATONIN 5 MG TAB PO ONE (01:11)
[2024-11-17] MEDS: glipiZIDE 5 MG TAB PO SCH (06:39)
[2024-11-17 07:21] LABS: Basophils # (auto) 0 10 ^3/uL (0-0.2); Basophils % (auto) 1.2 % (0.0-2.0); Eosinophils # (auto) 0.1 10 ^3/uL (0-0.8); Eosinophils % (auto) 2.2 % (0.0-7.0); Hematocrit 44.2 % (41.0-53.0); Hemoglobin 15.4 g/dL (13.5-17.5); Lymphocytes # (auto) 1.1 10 ^3/uL (0.4-5.4); Lymphocytes % (auto) 30.7 % (10.0-50.0); Mean Corpuscular Hemoglobin 32.5 pg (28.0-32.0); Mean Corpuscular Hgb Conc. 34.9 g/dL (32.0-36.0); Mean Corpuscular Volume 93.1 fL (80.0-100.0); Monocytes # (auto) 0.4 10 ^3/uL (0-1.3); Monocytes % (auto) 10.8 % (0.0-12.0); Neutrophils % (auto) 55.1 % (37.0-80.0); Nucleated Red Blood Cells % 0.2 %; Platelet Count (auto) 263 10^3/uL (140-450); Red Blood Cells 4.75 10^6/uL (4.5-5.90); Red Cell Distribution Width 13.8 % (11.8-14.3); White Blood Cell 3.6 10^3/uL (4.4-10.8)
[2024-11-17 07:48] LABS: Alanine Aminotransferase 21 U/L (7-40); Albumin 3.9 g/dL (3.2-4.8); Alkaline Phosphatase 79 U/L (46-116); Anion Gap 12 (5-15); Aspartate Aminotransferase 23 U/L (13-40); BUN/Creatinine Ratio 12.7 (10.0-20.0); Bilirubin, Total 0.8 mg/dL (0.2-1.0); Blood Urea Nitrogen 15 mg/dL (9-23); Calcium 9.8 mg/dL (8.7-10.4); Carbon Dioxide 24 mmol/L (20-31); Chloride 102 mmol/L (98-107); Potassium 3.6 mmol/L (3.5-5.1); Sodium 138 mmol/L (136-145)
[2024-11-17 07:53] LABS: Glucose 170 mg/dL (74-106)
[2024-11-17] MEDS: hydroCHLOROthiazide 25 MG TAB PO SCH (08:09)
[2024-11-17] MEDS: ASPirin-EC 81 mg tab PO SCH (08:10)
[2024-11-17] MEDS: LISINOPRIL 20 MG TAB PO SCH (08:10)
[2024-11-17] MEDS: FUROSEMIDE 20 MG/2 ML VIAL IV SCH (08:11)
[2024-11-17] MEDS: amLODIPine BESYLATE 5 MG TAB PO SCH (08:11)
[2024-11-17] MEDS ORDERED: PATIENTS OWN MEDICATION (Amlodipine Besylate 1 TAB) PO SCH (10:00)
[2024-11-17] MEDS ORDERED: PATIENTS OWN MEDICATION (Glipizide 1 TAB) PO SCH (10:00)
[2024-11-17] MEDS ORDERED: PATIENTS OWN MEDICATION (Lisinopril & Hydrochlorothiazi (Lisinopril/Hydrochlorothi) 1 TAB) PO SCH (10:00)
--- NOTE | 2024-11-17 11:07 | ECG ---
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
--- NOTE | 2024-11-17 11:31 | DVHSR ---
APPROVED REPORT EXAM: Two-dimensional and M-mode echocardiogram with Doppler and color Doppler. Blood Pressure: 205/95 mmHg INDICATION Hypertension RISK FACTORS Height: 6', Weight: 193 DIMENSIONS LVDd4.3 (3.8-5.7cm)LA (2D)4.1 (1.9-4.0cm)Aortic Root3.2 (2.0-3.7cm) LVDs2.8 (2.5-4.0cm)LA (MM) (1.9-4.0cm)Aortic Cusp Exc1.8 (1.5-2.0cm) EF (%) 64.0 (55-70%)Rt. Atrium4.1 (1.9-4.0cm)Asc. Aorta3.4 cm IVSd1.5 (0.7-1.1cm)RV (D)3.1 (1.8-2.4cm) PWd1.3 (0.7-1.1cm) Mitral Valve MitralMitral Stenosis E wave0.85m/sMV Mean GR.mmHg A wave0.79m/sMV Peak GR.mmHg E/A ratio1.12D MVAcm2 DECEL [id number] 1/2 Timems Aortic Valve Aortic ValveAortic Stenosis LVOT Diameter2.0 (1.8-2.4cm)Doppler AVAcm2 Pulmonic Valve V20.83m/s Conclusion lvef 60% severe lvh normal rv function left atrium enlarged no severe valve abnormalites noted
[2024-11-17] MEDS: POTASSIUM CHL 20 Meq TABLET PO ONE (12:00)
--- NOTE | 2024-11-17 16:47 | DVHPN2 ---
Subjective no headaches Reviewed: H&P, Labs Changes from previous H/P or p: No Changes General: Per HPI Eyes: No Pain, No Vision change, No Conjunctivae inflammation, No Eyelid inflammation, No Other, No Redness ENT: No Ear pain, No Ear discharge, No Nose pain, No Nose discharge, No Nose congestion, No Mouth pain, No Mouth swelling, No Throat pain, No Throat swelling, No Other Cardiovascular: No Chest Pain, No Palpitations, No Orthopnea, No Paroxysmal Noc. Dyspnea; Edema (bilateral lower extremities); No Lt Headedness, No Other Respiratory: No Cough, No Dry, No Shortness of breath, No SOB with excertion, No Wheezing, No Hemoptysis, No Pleuritic Pain, No Sputum, No Other Gastrointestinal: No Nausea, No Vomiting, No Abdominal Pain, No Diarrhea, No Constipation, No Melena, No Hematochezia, No Other Genitourinary: No Dysuria, No Frequency, No Incontinence, No Hematuria, No Retention, No Other Musculoskeletal: No other, No neck pain, No shoulder pain, No arm pain, No back pain, No hand pain, No leg pain, No foot pain Skin: No Rash, No Lesions, No Jaundice, No Bruising, No Other Objective Vitals Vital Signs Date Time Temp Pulse Resp B/P (MAP) Pulse Ox O2 Delivery O2 Flow Rate FiO2 11/17/24 15:18 60 17 134/79 (97) 11/17/24 13:00 97.6 97 97.6 11/17/24 07:51 Room Air* 0 21 Intake/Output Intake and Output 11/17/24 07:00 Intake Total 800 ml Balance 800 ml Intake Oral 800 ml # Voids 3 General Appearance: Alert, Oriented X3 HEENT: Atraumatic Lungs: Clear to auscultation Cardiovascular: Regular rate, Normal S1, Normal S2 Medications Current Medications Medications Dose Ordered Sig/Cory Route Start Time Stop Time Status Last Admin Dose Admin Sodium Chloride 10 ml Q8HR IV 11/16/24 14:00 11/17/24 06:34 10 ML Acetaminophen/ Hydrocodone Bitart 1 tab Q4HP PRN PO 11/16/24 12:30 Ondansetron HCl 4 mg Q4HP PRN IV 11/16/24 12:30 Docusate Sodium 100 mg BIDPRN PRN PO 11/16/24 12:30 Acetaminophen 650 mg Q6HP PRN PO 11/16/24 12:30 Nitroglycerin 0.4 mg Q5MINP PRN SL 11/16/24 12:30 Morphine Sulfate 2 mg Q30M PRN IV 11/16/24 12:30 UNV Aspirin 81 mg DAILY PO 11/17/24 10:00 11/17/24 08:10 81 MG Metoprolol Succinate 50 mg BID PO 11/16/24 22:00 11/17/24 08:08 50 MG Patient Own Medication 1 tab DAILY PO 11/17/24 10:00 UNV Patient Own Medication 1 tab HS PO 11/16/24 22:00 UNV Patient Own Medication 1 tab DAILY PO 11/17/24 10:00 UNV Patient Own Medication 1 tab DAILY PO 11/17/24 10:00 UNV Patient Own Medication 1 tab DAILY PO 11/17/24 10:00 Furosemide 20 mg DAILY IV 11/17/24 10:00 11/17/24 08:11 20 MG Diagnostic Test (Pha) 1 strip ACHS 11/16/24 17:00 11/17/24 11:30 1 STRIP Insulin Human Regular HS SC 11/16/24 22:00 Insulin Human Regular AC SC 11/16/24 17:00 11/17/24 11:30 9 UNITS Dextrose 50 ml UD PRN IV 11/16/24 12:45 Morphine Sulfate 2 mg Q30M PRN IV 11/16/24 13:00 Amlodipine Besylate 10 mg DAILY PO 11/17/24 10:00 11/17/24 08:11 10 MG Glipizide 2.5 mg IQAM PO 11/17/24 07:00 11/17/24 06:39 2.5 MG Atorvastatin Calcium 40 mg HS PO 11/16/24 22:00 11/16/24 22:02 40 MG Lisinopril 20 mg DAILY PO 11/17/24 10:00 11/17/24 08:10 20 MG Hydrochlorothiazide 12.5 mg DAILY PO 11/17/24 10:00 11/17/24 08:09 12.5 MG Hydralazine HCl 25 mg Q6HP PRN PO 11/16/24 15:30 11/17/24 11:43 25 MG Insulin Glargine 16 units HS SC 11/17/24 22:00 Melatonin 10 mg HSPRN PO 11/17/24 22:00 Laboratory Results Laboratory Tests 11/17/24 06:31 Chemistry Test 11/17/24 06:31 Albumin 3.9 g/dL (3.2-4.8) Calcium Level 9.8 mg/dL (8.7-10.4) Total Protein 7.0 g/dL (5.7-8.2) LFT Test 11/17/24 06:31 Alanine Aminotransferase (ALT) 21 U/L (7-40) Alkaline Phosphatase 79 U/L (46-116) Aspartate Amino Transferase (AST) 23 U/L (13-40) Total Bilirubin 0.8 mg/dL (0.2-1.0) HgA1c, TSH Test 11/17/24 06:31 Hemoglobin A1c 13.7 % A1C (<5.7) H Urinalysis Test 11/16/24 08:52 Urine Color Colorless (Yellow) Urine Clarity Clear (Clear) Urine pH 7.5 (5.0-9.0) Urine Specific [place] 1.012 (1.001-1.035) Urine Protein 1+ (Negative) H Urine Ketones Trace (Negative) Urine Blood Trace /uL (Negative) H Urine Nitrite Negative (Negative) Urine Bilirubin Negative (Negative) Urine Urobilinogen Normal mg/dL (Negative) Urine Leukocyte Esterase Negative /uL (Negative) Urine RBC 2 /hpf (0 - 3) Urine Microscopic WBC 1 /HPF (0-3) Urine Squamous Epithelial Cells None seen /hpf (<5) Urine Bacteria None seen /hpf (None Seen) Urine Glucose 4+ mg/dL (Normal) H Assessment/Plan Assessment/Plan Hypertensive urgency, Uncontrolled diabetes, with hyperglycemia Hyperlipidemia, Continue home mediations echo pending will continue adjusting home antihypertensives Plan discussed with: Patient Date of Service: Nov 17, 2024 Billing Provider: FAITH HILL MD Common Visit Codes: [id number] INP/OBS CARE(HIGH) FAITH HILL MD Nov 17, 2024 16:47
[2024-11-17] MEDS: MELATONIN 5 MG TAB PO SCH (22:02)
[2024-11-17] MEDS: INSULIN LANTUS (GLARGINE) 1 /0.01ml (100units/ml) SC SCH (22:18)
[2024-11-18 01:00] VITALS: BP 150/87; PULSE 57; RESP 18; TEMP 98.1; O2SAT 99
[2024-11-18 05:00] VITALS: BP 160/95; PULSE 49; RESP 20; TEMP 97.4; O2SAT 97
[2024-11-18 08:00] VITALS: PULSE 50
[2024-11-18 08:43] VITALS: BP 106/76; PULSE 63; RESP 17; TEMP 98.4; O2SAT 96
[2024-11-18] MEDS ORDERED: METO-6 PO (11:55)
[2024-11-18] MEDS ORDERED: LISI20TA56 PO (11:55)
[2024-11-18] MEDS ORDERED: SITA100T7 PO (11:55)
[2024-11-18] MEDS ORDERED: INSU1INJ26 SC (11:55)
[2024-11-18] MEDS ORDERED: HYDR25TA5 PO (11:55)
[2024-11-18] MEDS ORDERED: AMLO1TAB23 PO (11:55)
[2024-11-18] MEDS ORDERED: [UNRECOGNIZED DRUG - CODE] PO (11:55)
[2024-11-18] MEDS ORDERED: FURO1TAB33 PO (11:56)
[2024-11-18 12:44] VITALS: BP 106/76; PULSE 63; RESP 17; TEMP 98.4; O2SAT 96
--- NOTE | 2024-11-18 12:48 | DVHDS2 ---
Discharge Summary Date of Admission Nov 16, 2024 at 12:16 Date of Discharge: Nov 18, 2024 Labs/Diagnostic Data: Laboratory Results Test 11/18/24 11:25 11/17/24 06:31 11/16/24 11:50 11/16/24 08:52 POC Glucose 326 mg/dl (70-106) White Blood Count 3.6 10^3/uL (4.4-10.8) Red Blood Count 4.75 10^6/uL (4.5-5.90) Hemoglobin 15.4 g/dL (13.5-17.5) Hematocrit 44.2 % (41.0-53.0) Mean Corpuscular Volume 93.1 fL (80.0-100.0) Mean Corpuscular Hemoglobin 32.5 pg (28.0-32.0) Mean Corpuscular Hemoglobin Concent 34.9 g/dL (32.0-36.0) Red Cell Distribution Width 13.8 % (11.8-14.3) Platelet Count 263 10^3/uL (140-450) Mean Platelet Volume 8.9 fL (6.9-10.8) Neutrophils (%) (Auto) 55.1 % (37.0-80.0) Lymphocytes (%) (Auto) 30.7 % (10.0-50.0) Monocytes (%) (Auto) 10.8 % (0.0-12.0) Eosinophils (%) (Auto) 2.2 % (0.0-7.0) Basophils (%) (Auto) 1.2 % (0.0-2.0) Neutrophils # (Auto) 2.0 10 ^3/uL (1.6-8.6) Lymphocytes # (Auto) 1.1 10 ^3/uL (0.4-5.4) Monocytes # (Auto) 0.4 10 ^3/uL (0-1.3) Eosinophils # (Auto) 0.1 10 ^3/uL (0-0.8) Basophils # (Auto) 0 10 ^3/uL (0-0.2) Nucleated Red Blood Cells 0.2 % Sodium Level 138 mmol/L (136-145) Potassium Level 3.6 mmol/L (3.5-5.1) Chloride Level 102 mmol/L (98-107) Carbon Dioxide Level 24 mmol/L (20-31) Anion Gap 12 (5-15) Blood Urea Nitrogen 15 mg/dL (9-23) Creatinine 1.18 mg/dL (0.700-1.30) Glomerular Filtration Rate Calc 72 mL/min (>90) BUN/Creatinine Ratio 12.7 (10.0-20.0) Serum Glucose 170 mg/dL (74-106) Hemoglobin A1c 13.7 % A1C (<5.7) Calcium Level 9.8 mg/dL (8.7-10.4) Total Bilirubin 0.8 mg/dL (0.2-1.0) Aspartate Amino Transferase (AST) 23 U/L (13-40) Alanine Aminotransferase (ALT) 21 U/L (7-40) Alkaline Phosphatase 79 U/L (46-116) Total Protein 7.0 g/dL (5.7-8.2) Albumin 3.9 g/dL (3.2-4.8) Troponin I High Sensitivity 31 ng/L (</=54) Urine Color Colorless (Yellow) Urine Clarity Clear (Clear) Urine pH 7.5 (5.0-9.0) Urine Specific [place] 1.012 (1.001-1.035) Urine Protein 1+ (Negative) Urine Ketones Trace (Negative) Urine Blood Trace /uL (Negative) Urine Nitrite Negative (Negative) Urine Bilirubin Negative (Negative) Urine Urobilinogen Normal mg/dL (Negative) Urine Leukocyte Esterase Negative /uL (Negative) Urine RBC 2 /hpf (0 - 3) Urine Microscopic WBC 1 /HPF (0-3) Urine Squamous Epithelial Cells None seen /hpf (<5) Urine Bacteria None seen /hpf (None Seen) Urine Glucose 4+ mg/dL (Normal) Other Laboratory Tests 11/17/24 06:31 Brief Hx & Hospital Course: 4-year-old male with past medical history of hypertension, hyperlipidemia, [place], diabetes, and TIA who came to the hospital for bilateral lower extremity swelling. Patient states his legs began to swelling about 3 days ago. He states he does not like taking medications daily so he takes them 3-4 times a week. On the day he does not take his medications he takes natural, home remedies. During hospital stay adjusted medications and on oral antihypertensives, bp better. Condition at Discharge: Good Final Diagnosis/Problems List diabetes type 2 uncontrolled with hyperglycemia HTN urgency Discharge Disposition: Home Discharge Instruct/Medications Diet: Regular Activity: No Restrictions, As Tolerated Follow Up/Referral: PCP in 7 days Medications: lisinopril, HCTZ, amlodipine, lasix, metoprolol, 70/30 insulin Discharge Statement: "Patient was advised to return to the ER or call 911 if any headaches, dizziness, shortness of breath, chest pain, abdominal pain, bleeding, fevers, or worsening of medical condition. Patient was counseled about treatment plan, medications, possible side effects, patientverbalized understanding. All questions were answered to the best of my ability. This discharge took greater then 30 minutes in planning, reviewing documentation, counseling the patient, and discussing with other team members." ASSESSMENT ASSESSMENT Assessment diabetes type 2 uncontrolled with hyperglycemia HTN urgency Date of Service: Nov 18, 2024 Billing Provider: FAITH HILL MD Common Visit Codes: 92350-BQX/OBS DISCH DAY >30min FAITH HILL MD Nov 18, 2024 12:48
[2024-11-18 13:00] VITALS: BP 144/89; PULSE 52; RESP 18; TEMP 97.6; O2SAT 98
== END 2024-11-18 15:02 | disposition home or self-care (01) | DRG 194 ==
LOC: ER 08:24 → OVERFLOW 12:16 → TELE-WESTW 18:05
PROVIDERS: ADMIT Hospitalist; ATTEND Hospitalist
DX: I11.0 Hypertensive heart disease with heart failure (principal); E11.65 Type 2 diabetes mellitus with hyperglycemia; I50.31 Acute diastolic (congestive) heart failure; I16.0 Hypertensive urgency; E78.5 Hyperlipidemia, unspecified; I48.91 Unspecified atrial fibrillation; Z86.73 Personal history of transient ischemic attack (TIA), and cerebral infarction without residual deficits; Z95.5 Presence of coronary angioplasty implant and graft; I25.2 Old myocardial infarction
CPT/HCPCS: 36415; 71045; 80048; 80053; 81001; 82962; 83036; 84484; 85025; 93005; 93306; 96372; 96374; 96375; 99291; G0378; J1815

== ENCOUNTER 2025-01-12 06:25 | Inpatient (IN) | payer MEDICAID ==
[2025-01-12] VITALS (24 sets, daily range): BP systolic 116–198; BP diastolic 73–109; PULSE 63–127; RESP 13–43; TEMP 97–98.4; O2SAT 75–100
[~2025-01-12] VITALS: Ht 182.9 cm; Wt 92.8 kg
[~2025-01-12 06:25] MED LIST: AMLO1TAB23 PO; ASPI-325 PO; ATOR40TA52 PO; FURO1TAB33 PO; HYDR25TA5 PO; INSU1INJ26 SC; LISI20TA56 PO; METO-6 PO; SITA100T7 PO; [UNRECOGNIZED DRUG - CODE] PO
--- NOTE | 2025-01-12 07:06 | ED.PDOC ---
SOB-HPI HPI Comments 54 y/o M, BIBA, with PMHx of HTN, HLD, [place], and HTN presents to the ED for CC of shortness of breath. 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 EMS relays, upon arrival to scene patient was found to be stating at 79% on R.A. In route to the ED, patient was given a breathing TX and saturation levels improved to 95%. Patient denies fever, chest pain, palpitations, nasal congestion, or sore-throat. No other symptoms or modifying factors present at this time. Chief Complaint: Shortness of Breath Time Seen by MD: 06:35 Primary Care Provider: ? Reviewed notes: Nurses Notes, Talk Show Host Notes, Medications, Allergies Information Source: Patient, Emergency Med Personnel Mode of Arrival: EMS Severity: Moderate Timing: Minutes Duration: Since onset Context: At Rest PE Risk Factors: None History of: None Prehospital treatment: Breathing Tx Modifying Factors: Nothing Associated Signs and Symptoms: Cough If cough with SOB: Productive Past Medical History PAST MEDICAL HISTORY: AFIB, DM, High Lipids, HTN, [place], TIA Surgical History: PTCA Family History Family History: Reviewed,noncontributory to illness, Unknown Social History Smoker: Non-Smoker Alcohol: Occasionally Drugs: Denies Drug Use Lives In: Home Constitutional: denies: chills, diaphoresis, fatigue, fever, malaise, sweats, weakness, others EENTM: denies: blurred vision, double vision, ear bleeding, ear discharge, ear drainage, ear pain, ear ringing, eye pain, eye redness, hearing loss, mouth pain, mouth swelling, nasal discharge, nose bleeding, nose congestion, nose pain, photophobia, tearing, throat pain, throat swelling, voice changes, others Respiratory: reports: cough, shortness of breath; denies: hemoptysis, orthopnea, SOB at rest, SOB with excertion, stridor, wheezing, others Cardiovascular: denies: chest pain, dizzy spells, diaphoresis, Dyspnea on exertion, edema, irregular heart beat, left arm pain, lightheadedness, palpitations, PND, syncope, others Gastrointestinal: denies: abdomen distended, abdominal pain, blood streaked bowels, constipated, diarrhea, dysphagia, difficulty swallowing, hematemesis, melena, nausea, poor appetite, poor fluid intake, rectal bleeding, rectal pain, vomiting, others Genitourinary: denies: burning, dysuria, flank pain, frequency, hematuria, incontinence, penile discharge, penile sore, pain, testicle pain, testicle swelling, urgency, others Neurological: denies: dizziness, fainting, headache, left sided numbness, left sided weakness, numbness, paresthesia, pre-existing deficit, right sided numbness, right sided weakness, seizure, speech problems, tingling, tremors, weakness, others Musculoskeletal: denies: back pain, gout, joint pain, joint swelling, muscle pain, muscle stiffness, neck pain, others Integumetry: denies: bruises, change in color, change in hair/nails, dryness, laceration, lesions, lumps, rash, wounds, others Allergic/Immunocompromised: denies: Difficulty Healing, Frequent Infections, Hives, Itching, others Hematologic/Lymphatic: denies: anemia, blood clots, easy bleeding, easy bruising, swollen glands, others Endocrine: denies: excessive hunger, excessive sweating, excessive thirst, excessive urination, flushing, intolerance to cold, intolerance to heat, unexplained weight gain, unexplained weight loss, others Psychiatric: denies: anxiety, bipolar disorder, depression, hopeless, panic disorder, schizophrenia, sleepless, suicidal, others All Other Systems: Reviewed and Negative Physical Exam General Appearance: Moderate Distress HEENT: Normal ENT Inspection, Pharynx Normal, TMs Normal Neck: Full Range of Motion, Non-Tender, Normal, Normal Inspection Respiratory: Respiratory Distress, Other (Coarse breath sounds) Cardiovascular: Irregular, Tachycardia Breast Exam: Deferred Gastrointestinal: No Organomegaly, Non Tender, No Pulsatile Mass, Normal Bowel Sounds, Soft Genitalia: Deferred Pelvic: Deferred Rectal: Deferred Extremities: No calf tenderness, Normal capillary refill, Normal inspection, Normal range of motion, Non-tender, No pedal edema Musculoskeletal : Apperance: Normal Neurologic: Alert, production posting clerk II-XII nml as Tested, No Motor Deficits, Normal Affect, Normal Mood, No Sensory Deficits Cerebellar Function: Normal Reflexes: Normal Skin: Dry, Normal Color, Warm Peripheral Pulses: 3+ Radial (R), 3+ Radial (L) Lymphatic: No Adenopathy EKG EKG : Pulse Rate (adult): 94 [place]: Normal Cardiac Rhythm: Afib Block: None Hypertrophy: None ST: Normal Was a procedure done? Was a procedure done?: No Differential Dx Differential Diagnosis: Anxiety, Asthma, Bronchitis, CHF, COPD, Pneumonia, Pulmonary Embolism, Sinusitis, Pharyngitis, URI X-Ray, Labs, Meds, VS Vital Signs Date Time Temp Pulse Resp B/P (MAP) Pulse Ox O2 Delivery O2 Flow Rate FiO2 01/12/25 08:13 82 164/86 01/12/25 08:00 98.4 81 17 164/86 (112) 95 98.4 01/12/25 08:00 85 01/12/25 07:54 27 90 Nasal Cannula* 4 36 01/12/25 07:35 90 01/12/25 07:34 90 01/12/25 07:13 110 186/107 01/12/25 07:08 94 01/12/25 06:34 99.6 84 28 201/113 95 99.6 Lab Test 01/12/25 07:50 01/12/25 07:46 01/12/25 06:46 Range/Units Troponin I High Sensitivity 3427 *H 2702 *H </=54 ng/L Sodium Level 141 136-145 mmol/L Potassium Level 3.8 3.5-5.1 mmol/L Chloride Level 107 98-107 mmol/L Carbon Dioxide Level 21 20-31 mmol/L Anion Gap 13 5-15 Blood Urea Nitrogen 16 9-23 mg/dL Creatinine 1.27 0.700-1.30 mg/dL Glomerular Filtration Rate Calc 66 >90 mL/min BUN/Creatinine Ratio 12.6 10.0-20.0 Serum Glucose 306 H 74-106 mg/dL Calcium Level 8.8 8.7-10.4 mg/dL White Blood Count 5.9 4.4-10.8 10^3/uL Red Blood Count 3.28 L 4.5-5.90 10^6/uL Hemoglobin 10.6 L 13.5-17.5 g/dL Hematocrit 31.2 L 41.0-53.0 % Mean Corpuscular Volume 95.2 80.0-100.0 fL Mean Corpuscular Hemoglobin 32.4 H 28.0-32.0 pg Mean Corpuscular Hemoglobin Concent 34.0 32.0-36.0 g/dL Red Cell Distribution Width 14.4 H 11.8-14.3 % Platelet Count 174 140-450 10^3/uL Mean Platelet Volume 9.0 6.9-10.8 fL Neutrophils (%) (Auto) 67.5 37.0-80.0 % Lymphocytes (%) (Auto) 22.8 10.0-50.0 % Monocytes (%) (Auto) 8.0 0.0-12.0 % Eosinophils (%) (Auto) 0.5 0.0-7.0 % Basophils (%) (Auto) 1.2 0.0-2.0 % Neutrophils # (Auto) 4.0 1.6-8.6 10 ^3/uL Lymphocytes # (Auto) 1.3 0.4-5.4 10 ^3/uL Monocytes # (Auto) 0.5 0-1.3 10 ^3/uL Eosinophils # (Auto) 0 0-0.8 10 ^3/uL Basophils # (Auto) 0.1 0-0.2 10 ^3/uL Nucleated Red Blood Cells 0.1 % Prothrombin Time 10.6 9.3-11.8 sec Prothrombin Time INR 1.00 0.9-1.15 Activated Partial Thromboplast Time 26.6 24.5-34.5 SEC Current Medications Medications (Trade) Dose Ordered Sig/Cory Route Start Time Stop Time Status Last Admin Metoprolol Tartrate (Lopressor) 5 mg ONCE ONCE IV 01/12/25 06:45 01/12/25 06:46 DC 01/12/25 07:13 Lorazepam (Ativan Inj) 1 mg ONCE ONCE IV 01/12/25 07:15 01/12/25 07:16 DC 01/12/25 07:46 Heparin Sodium (Porcine) 5,000 units ONCE ONCE IV 01/12/25 07:45 01/12/25 07:46 DC 01/12/25 07:41 Patient alert. Shortness a breath. Blood pressure elevated. Was on breathing treatment. EKG does show irregular rhythm. Was given metoprolol. Anxious. Was given Ativan. Reviewed his history. Explained to the patient. Continue monitoring. [address] [address] Ph: [phone] DIAGNOSTIC IMAGING Diagnostic Imaging Report : [id number] Signed PATIENT: TANK JULIO ACCT: [id number] UNIT: [id number] : 1970 LOC: ER ROOM / BED: / AGE / SEX: 54 / M ADM STATUS: REG ER SERVICE [id number] ORDERING PHYSICIAN: MARION PERSAUD MD PROCEDURE(s): CXRP - CHEST PORTABLE REASON: sob ORDER NUMBER(s): [id number], ACCESSION NUMBER(s): [id number] INDICATION: sob TECHNIQUE: Portable AP view of the chest was performed. COMPARISON: XY CHEST PORTABLE on DOS: 11/16/24, CHEST TWO VIEWS ROUTINE on DOS: 03/17/22, CXR2 on DOS: 03/17/22, CHEST TWO VIEWS ROUTINE on DOS: 10/04/21, CXR2 on DOS: 10/04/21 FINDINGS: Lung volumes are somewhat low. There is mild interstitial prominence. No pneumothorax or consolidative infiltrates. The heart is not enlarged. IMPRESSION: Mild interstitial prominence may be due to reactive airways disease or mild CHF. This appearance may be exaggerated by low lung volumes. ATED BY: BANDAR MCKENZIE MD DICTATED DATE/TIME: 01/12/25832 SIGNED BY: BANDAR MCKENZIE MD SIGNED DATE/TIME: 01/12/25832 CC: Time of 1ST Reevaluation: 07:05 Reevaluation 1ST: Unchanged Patient Education/Counseling: Diagnosis, Treatment Family Education/Counseling: No Family Present SEPSIS Sepsis Screen Date sepsis recognized/suspect: Jan 12, 2025 Time Sepsis recognized/suspect: 630 Recent Procedure: No On Antibiotic Therapy: No Respiratory Rate >20: Yes Heart Rate >90: No Temp<36 C (96.8 F) or >38.3 C: No SBP <90 or MAP <65 mmHG: No New Acute Mental Status Change: No Is the patient on CPAP, BIPAP,: No Physician Orders Chest Portable (01/12/25 06:36) * Cardiology Consult (01/12/25 07:32) Vital Signs Date Time Temp Pulse Resp B/P (MAP) Pulse Ox O2 Delivery O2 Flow Rate FiO2 01/12/25 08:13 82 164/86 01/12/25 08:00 98.4 81 17 164/86 (112) 95 98.4 01/12/25 08:00 85 01/12/25 07:54 27 90 Nasal Cannula* 4 36 01/12/25 07:35 90 01/12/25 07:34 90 01/12/25 07:13 110 186/107 01/12/25 07:08 94 01/12/25 06:34 99.6 84 28 201/113 95 99.6 Laboratory Tests Test 01/12/25 06:46 White Blood Count 5.9 10^3/uL (4.4-10.8) Medications Medications Dose Ordered Sig/Cory Route Start Time Stop Time Status Last Admin Dose Admin Heparin Sodium (Porcine) 5,000 units ONCE ONCE IV 01/12/25 07:45 01/12/25 07:46 DC 01/12/25 07:41 Lorazepam 1 mg ONCE ONCE IV 01/12/25 07:15 01/12/25 07:16 DC 01/12/25 07:46 Metoprolol Tartrate 5 mg ONCE ONCE IV 01/12/25 06:45 01/12/25 06:46 DC 01/12/25 07:13 Departure 1 Departure Time of Disposition: 07:12 Impression: Primary Impression: Hypertensive emergency Additional Impressions: Pneumonitis Uncontrolled diabetes mellitus Qualified Codes: E13.65 - Other specified diabetes mellitus with hyperglycemia Disposition: ADMITTED INPATIENT Admit to: Med Surg Condition: Guarded Critical Care Note Critical Care Time?: Yes (90 min-critical care time only) Stability Stability form required: No Heart Score Heart Score: Heart Score Response (Comments) Value History Moderate Suspicious 1 EKG N/A 0 Age 45-64 1 Risk Factors 1 or 2 risk factors 1 Troponin N/A 0 Total 3 I personally scribed for MARION PERSAUD MD ([email or web address]) on 01/12/25 at 07:06. Electronically submitted by Karina Leahy ([email or web address]). I personally scribed for MARION PERSAUD MD ([email or web address]) on 01/12/25 at 07:08. Electronically submitted by Karina Leahy ([email or web address]). I personally scribed for MARION PERSAUD MD ([email or web address]) on 01/12/25 at 13:11. Electronically submitted by Karina Leahy ([email or web address]). MARION PERSAUD MD Jan 12, 2025 07:06
[2025-01-12 07:10] LABS: Hematocrit 31.2 % (41.0-53.0); Hemoglobin 10.6 g/dL (13.5-17.5); Mean Corpuscular Hemoglobin 32.4 pg (28.0-32.0); Mean Corpuscular Volume 95.2 fL (80.0-100.0); Nucleated Red Blood Cells % 0.1 %
[2025-01-12] MEDS: METOPROLOL TARTRATE 1MG/1ML-5ML VIAL IV ONE (07:13)
[2025-01-12] MEDS: HEPARIN SODIUM (PORCINE) 5000 UNITS/ML 1ML VIAL IV ONE (07:41)
--- NOTE | 2025-01-12 07:42 | ECG ---
[facility] Test Date: 2025-01-12 Test Time: 06:27:45 Pat Name: TANK JULIO Department: ED Room: 0295T Gender: M Retail Support Associate: SHELLEY : 1970 Requested By: MARION PERSAUD Order Number: [id number] Reading MD: Jaron Duckworth Measurements Intervals [place] Rate: 94 P: 0 [place]: 0 QRS: 11 QRSD: 91 T: 69 QT: 359 QTc: 449 Interpretive Statements Atrial fibrillation Anterior infarct, old Minimal ST depression, lateral leads Electronically Signed On 01-18-2025 17:24:05 PDT by Jaron Duckworth Please click the below link to view image of tracing.
[2025-01-12] MEDS: LORazepam 2MG/ML-1ML VIAL IV ONE (07:46)
[2025-01-12 08:14] LABS: Anion Gap 13 (5-15)
[2025-01-12 08:20] LABS: BUN/Creatinine Ratio 12.6 (10.0-20.0); Blood Urea Nitrogen 16 mg/dL (9-23); Calcium 8.8 mg/dL (8.7-10.4); Carbon Dioxide 21 mmol/L (20-31); Chloride 107 mmol/L (98-107); Glucose 306 mg/dL (74-106); Potassium 3.8 mmol/L (3.5-5.1); Sodium 141 mmol/L (136-145)
[2025-01-12] MEDS: LABETALOL HCL 20 MG/4 ML VL IV ONE (08:33)
--- NOTE | 2025-01-12 08:35 | DVH ---
INDICATION: sob TECHNIQUE: Portable AP view of the chest was performed. COMPARISON: XY CHEST PORTABLE on DOS: 11/16/24, CHEST TWO VIEWS ROUTINE on DOS: 03/17/22, CXR2 on DOS: 1 , CHEST TWO VIEWS ROUTINE on DOS: 10/04/21, CXR2 on DOS: 10/04/21 FINDINGS: Lung volumes are somewhat low. There is mild interstitial prominence. No pneumothorax or consolidativ e infiltrates. The heart is not enlarged. IMPRESSION: Mild interstitial prominence may be due to reactive airways disease or mild CHF. This appearance may be exaggerated by low lung volumes.
--- NOTE | 2025-01-12 08:43 | DVHINCON2 ---
Date Seen: Jan 12, 2025 Referring Physician MD Susan Reason for Consultation NSTEMI History of Present Illness This is a 54-year-old male patient who presents to the emergency room with chief complaint of shortness of breath. The patient reports that when he woke up at approximately 5:00 a.m. this morning he began to feel severely short of breath. This prompted him to call EMS who then brought him to the emergency room for further evaluation. Initial twelve lead electrocardiogram reveals normal sinus rhythm with artifact and baseline wander (EKG machine reads as atrial fibrillation). The emergency room physician called a code STEMI overhead. The 12 lead electrocardiograms were sent over to the on-call STEMI doctor who deemed EKGs "not a STEMI". Initial troponin level of 2702ng/L with up trend and current peak level at 3427ng/L. The patient denies any chest pain at time of assessment. Significant past medical history includes coronary artery disease status post PTCA x 2 TYLER in 2005 (on ASA), myocardial infarction, hypertension, dyslipidemia, type 2 diabetes mellitus, TIA, corneal transplant, and obesity. 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 Past Medical History Past medical history reviewed. No other significant than mentioned above. Past Surgical History Bilateral cataract surgery Bilateral corneal transplant Family History Family history reviewed. Social History Denies the use of tobacco, alcohol or illicit drugs. Allergies: Coded Allergies: NO KNOWN ALLERGIES (Unverified , 10/16/15) Home Meds Active Scripts Furosemide (Lasix) 20 Mg Tb, 1 TAB PO DAILY for 7 Days, #7 TAB 1 Refill Prov:FAITH HILL MD 11/18/24 Insulin Aspart Protamine & Asp (Insulin Aspart Protamine/ (70-30) 100 Unit/ml) 1 Inj Inj, 10 UNIT SC BIDBRS for 90 Days, #1 INJ Prov:FAITH HILL MD 11/18/24 Metoprolol Succinate (Toprol Xl) 50 Mg Tab, 50 MG PO BID for 90 Days, #180 TAB Prov:FAITH HILL MD 11/18/24 Lisinopril (Lisinopril) 20 Mg Tab, 20 MG PO DAILY for 90 Days, #90 TAB Prov:FAITH HILL MD 11/18/24 Hctz (Hydrochlorothiazide) 25 Mg Tab, 12.5 MG PO DAILY for 90 Days, #45 TAB Prov:FAITH HILL MD 11/18/24 Amlodipine Besylate (Amlodipine Besylate) 10 Mg Tab, 1 TAB PO DAILY for 90 Days, #90 TAB Prov:FAITH HILL MD 11/18/24 Sitagliptin Phosphate (Januvia) 100 Mg Tab, 1 TAB PO DAILY for 90 Days, #90 TAB Prov:FAITH HILL MD 11/18/24 Glipizide (Glipizide) 2.5 Mg Tab, 1 TAB PO DAILY for 90 Days, #90 TAB Prov:FAITH HILL MD 11/18/24 Reported Medications Atorvastatin Calcium (ATORVASTATIN CALCIUM) 40 Mg Tab, 1 TAB PO HS 11/16/24 Aspirin (Aspirin Low Dose) 81 Mg Tab, 1 TAB PO DAILY 11/16/24 Home Meds Home medications reviewed. Review of Systems Constitutional: No symptom reported Ears, Nose, & Throat: No symptom reported Eyes: No symptom reported Neurological: No symptoms reported Pulmonary/Respiratory: Shortness of breath Cardiovascular: No symptom reported Gastrointestinal: No symptom reported Genitourinary: No symptom reported Musculoskeletal: No symptom reported Skin: No symptom reported Psychiatric: No symptom reported Endocrine: No symptom reported Hematologic/Lymphatic: No symptom reported Vital Signs Vital Signs Date Time Temp Pulse Resp B/P (MAP) Pulse Ox O2 Delivery O2 Flow Rate FiO2 01/12/25 08:13 82 164/86 01/12/25 08:00 98.4 17 95 98.4 01/12/25 07:54 Nasal Cannula* 4 36 Physical Exam General Appearance: Cooperative. Well-developed. Well-nourished. No acute distress. Pulmonary/Respiratory: Clear, bilateral breaths sounds. Cardiovascular/Chest: Regular rate and rhythm. Peripheral Pulses: 2+ Radial (R). 2+ Radial (L). 2+ Pedal (R). 2+ Pedal (L) Abdominal Exam: Normal bowel sounds. Ankle Exam: Nonpitting bilateral ankle edema Lower extremities: Nonpitting bilateral lower extremity edema Neuro/Mental Status: A/OX4, coherent. Thoughts/Psych: Normal thought pattern. Appropriate mood and affect. Good judgment and insight. Appearance: No acute distress. Skin Exam: Normal inspection. Normal color. Warm and dry. Labs/Diagnostic Data Labs Test 01/12/25 07:50 01/12/25 07:46 01/12/25 06:46 Range/Units Troponin I High Sensitivity 3427 *H </=54 ng/L Sodium Level 141 136-145 mmol/L Potassium Level 3.8 3.5-5.1 mmol/L Chloride Level 107 98-107 mmol/L Carbon Dioxide Level 21 20-31 mmol/L Anion Gap 13 5-15 Blood Urea Nitrogen 16 9-23 mg/dL Creatinine 1.27 0.700-1.30 mg/dL Glomerular Filtration Rate Calc 66 >90 mL/min BUN/Creatinine Ratio 12.6 10.0-20.0 Serum Glucose 306 H 74-106 mg/dL Calcium Level 8.8 8.7-10.4 mg/dL White Blood Count 5.9 4.4-10.8 10^3/uL Red Blood Count 3.28 L 4.5-5.90 10^6/uL Hemoglobin 10.6 L 13.5-17.5 g/dL Hematocrit 31.2 L 41.0-53.0 % Mean Corpuscular Volume 95.2 80.0-100.0 fL Mean Corpuscular Hemoglobin 32.4 H 28.0-32.0 pg Mean Corpuscular Hemoglobin Concent 34.0 32.0-36.0 g/dL Red Cell Distribution Width 14.4 H 11.8-14.3 % Platelet Count 174 140-450 10^3/uL Mean Platelet Volume 9.0 6.9-10.8 fL Neutrophils (%) (Auto) 67.5 37.0-80.0 % Lymphocytes (%) (Auto) 22.8 10.0-50.0 % Monocytes (%) (Auto) 8.0 0.0-12.0 % Eosinophils (%) (Auto) 0.5 0.0-7.0 % Basophils (%) (Auto) 1.2 0.0-2.0 % Neutrophils # (Auto) 4.0 1.6-8.6 10 ^3/uL Lymphocytes # (Auto) 1.3 0.4-5.4 10 ^3/uL Monocytes # (Auto) 0.5 0-1.3 10 ^3/uL Eosinophils # (Auto) 0 0-0.8 10 ^3/uL Basophils # (Auto) 0.1 0-0.2 10 ^3/uL Nucleated Red Blood Cells 0.1 % Assessment NSTEMI, rule out progressive coronary artery disease Hypertensive urgency Coronary artery disease status post PTCA X 2 TYLER (on ASA) Rule out structural heart disease History myocardial infarction Dyslipidemia Type 2 diabetes mellitus History of TIA Obesity Plan/Recommendation We will continue with the following plan/recommendations (Dr. Henson): * Transthoracic echocardiogram to evaluate cardiac function * Chest pain protocol * JUAN A score: 4 points * HEART score: 7 points (high score) * Heparin drip per ACS protocol * BP control * Lipid-lowering agent * Close Cardiac surveillance * Coronary angiogram Given the patient's clinical presentation, elevated troponin level, and previous cardiac history, the patient may benefit from a coronary angiogram with left heart catheterization. The procedure was discussed with the patient in full detail including risks and benefits. Risks include but are not limited to bleeding, contrast-induced nephropathy, coronary dissection, stroke, and even . The patient understands and is agreeable to undergo the procedure. We will schedule the patient at soonest availability on 01/12/2025. Thank you for allowing us to care for this patient. Please call with any questions or concerns. Critical care time spent: 44 minutes This medical document was created using an electronic medical record system with voice recognition software and computerized dictation system. Although this document has been carefully reviewed, there might still be some phonetic and typographical errors. Occasional wrong-word or ``sound-alike substitutions may have occurred due to the inherent limitations of voice recognition software. These areas are purely typographical due to imperfections of the software programs and do not reflect any compromise in the patient's medical care. Please read the chart carefully and recognize, using context, where these substitutions have occurred. Plan discussed with: Patient NYHA Physical activity limitations: NA Date of Service: Jan 12, 2025 Billing Provider: LISA TOM Cardiology Common Codes: 45858-MPKGMFG INP/OBS CARE (High) Cardiology Consultation Codes: 61774-EKQICBJZT CONSULT <45MIN LISA TOM Jan 12, 2025 08:43
[2025-01-12] MEDS ORDERED: NITROGLYCERIN 0.4 MG SL TAB SL PRN (08:45)
[2025-01-12] MEDS ORDERED: HYDROcodone-ACET 5/325MG TAB PO PRN (08:45)
[2025-01-12] MEDS ORDERED: ACETAMINOPHEN 325 MG TAB PO PRN (08:45)
[2025-01-12] MEDS ORDERED: ONDANSETRON HCL 4 MG/2 ML VIAL IV PRN (08:45)
[2025-01-12] MEDS ORDERED: MORPHINE SULFATE INJ 2 MG/ml SYRG IV PRN ×2 (08:45)
[2025-01-12] MEDS ORDERED: DEXTROSE (50%) 50ML SYRG IV PRN (08:45)
[2025-01-12] MEDS ORDERED: DOCUSATE SOD 100 MG CAP PO PRN (08:45)
--- NOTE | 2025-01-12 08:58 | DVHHP2 ---
History of Present Illness Reason for Visit: Shortness of breath History of Present Illness Vishal Bernard is a 54-year-old male with past medical history of hypertension, diabetes, blind in left eye, hyperlipidemia, ID with 2 stents placed in 2005, and TIA who was brought to the hospital for shortness of breath. Patient states he was awoken about 0300 by severe shortness of breath. He got up and went outside to try and feel better without any improvement so he called EMS. On arrival to the ER his initial troponin was 2701 and then increased to 3427. His EKG was showing changes so the ER provider called a code STEMI. special technical operations officer STEMI provider deemed it was not a STEMI. Patient was given Ativan, and placed on oxygen for his shortness of breath and anxiety. Breathing oxygenation improved. Plan is for patient to start on heparin drip and to go to lab support service tech as soon as he can be scheduled. Cardiovascular: HTN, ID, hyperipidemia, Other (PTCA with 2 stents) RN LVN: TIA Endocrine: Diabetes Past Surgical History: Cataract Removal (right eye), Other (PTCA with 2 stents, right eye cornea transplant) Family History: None Smoke: No ALCOHOL: occassional Drugs: None Lives: with Family Domestic Violence: Neg Review of Systems Constitutional: Yes: Weakness, Malaise; No: Fever, Chills, Sweats, Other Eyes: No: Pain, Vision change, Conjunctivae inflammation, Eyelid inflammation, Other, Redness ENT: No: Ear pain, Ear discharge, Nose pain, Nose discharge, Nose congestion, Mouth pain, Mouth swelling, Throat pain, Throat swelling, Other Respiratory: Shortness of breath, SOB with excertion, Wheezing; No: Cough, Dry, Hemoptysis, Pleuritic Pain, Sputum, Wheezing, Other Cardiovascular: No: Chest Pain, Palpitations, Orthopnea, Paroxysmal Noc. Dyspnea, Edema, Lt Headedness, Other Gastrointestinal: No: Nausea, Vomiting, Abdominal Pain, Diarrhea, Constipation, Melena, Hematochezia, Other Genitourinary: No Dysuria, No Frequency, No Incontinence, No Hematuria, No Retention, No Other Musculoskeletal: No: other, neck pain, shoulder pain, arm pain, back pain, hand pain, leg pain, foot pain Skin: No: Rash, Lesions, Jaundice, Bruising, Other Neurological: No: Weakness, Numbness, Incoordination, Change in speech, Confusion, Seizures, Other Allergies: Coded Allergies: NO KNOWN ALLERGIES (Unverified , 10/16/15) Medications Current Medications Medications Dose Ordered Sig/Cory Route Start Time Stop Time Status Last Admin Dose Admin Heparin Sodium/ Dextrose 250 ml @ 10.38 mls/ hr Q24H IV 01/12/25 09:00 UNV Acetaminophen/ Hydrocodone Bitart 1 tab Q4HP PRN PO 01/12/25 08:45 UNV Ondansetron HCl 4 mg Q4HP PRN IV 01/12/25 08:45 UNV Docusate Sodium 100 mg BIDPRN PRN PO 01/12/25 08:45 UNV Acetaminophen 650 mg Q6HP PRN PO 01/12/25 08:45 UNV Morphine Sulfate 2 mg Q4HPRN PRN IV 01/12/25 08:45 UNV Nitroglycerin 0.4 mg Q5MINP PRN SL 01/12/25 08:45 UNV Morphine Sulfate 2 mg Q30M PRN IV 01/12/25 08:45 UNV Ipratropium Register 0.5 mg Q6HWA NEB 01/12/25 12:00 UNV Albuterol 2.5 mg Q6HWA NEB 01/12/25 12:00 UNV Diagnostic Test (Pha) 1 strip ACHS 01/12/25 11:30 UNV Insulin Human Regular HS SC 01/12/25 22:00 UNV Insulin Human Regular AC SC 01/12/25 11:30 UNV Dextrose 50 ml UD PRN IV 01/12/25 08:45 UNV Aspirin 81 mg DAILY PO 01/12/25 10:00 UNV Hydrochlorothiazide 12.5 mg DAILY PO 01/12/25 10:00 UNV Metoprolol Succinate 50 mg BID PO 01/12/25 10:00 UNV Patient Own Medication 1 tab DAILY PO 01/12/25 10:00 UNV Patient Own Medication 1 tab HS PO 01/12/25 22:00 UNV Patient Own Medication 1 tab DAILY PO 01/12/25 10:00 UNV Patient Own Medication 1 tab DAILY PO 01/12/25 10:00 UNV Lisinopril 20 mg DAILY PO 01/12/25 10:00 UNV Exam Vital Signs Vital Signs Date Time Temp Pulse Resp B/P (MAP) Pulse Ox O2 Delivery O2 Flow Rate FiO2 8/5/25 08:13 82 164/86 01/12/25 08:00 98.4 17 95 98.4 01/12/25 07:54 Nasal Cannula* 4 36 General Appearance: Alert, Oriented X3, Cooperative, moderate distress HEENT: Atraumatic, PERRLA Respiratory: Clear to auscultation, Normal air movement Cardiovascular: Normal S1, Normal S2, Other (ST, hypertensive) Abdominal: Normal bowel sounds, Soft, No tenderness, No hepatospenomegaly Extremities: No clubbing, No cyanosis, No edema, Normal pulses Skin: No rashes, No breakdown, No significant lesion Neuro: Normal gait, Normal speech, Strength at 5/5 X4 ext, Normal tone Psych/Mental Status: Mental status NL, Mood NL Labs/Xrays Labs Test 01/12/25 07:50 01/12/25 07:46 01/12/25 06:46 Range/Units Troponin I High Sensitivity 3427 *H </=54 ng/L Sodium Level 141 136-145 mmol/L Potassium Level 3.8 3.5-5.1 mmol/L Chloride Level 107 98-107 mmol/L Carbon Dioxide Level 21 20-31 mmol/L Anion Gap 13 5-15 Blood Urea Nitrogen 16 9-23 mg/dL Creatinine 1.27 0.700-1.30 mg/dL Glomerular Filtration Rate Calc 66 >90 mL/min BUN/Creatinine Ratio 12.6 10.0-20.0 Serum Glucose 306 H 74-106 mg/dL Calcium Level 8.8 8.7-10.4 mg/dL White Blood Count 5.9 4.4-10.8 10^3/uL Red Blood Count 3.28 L 4.5-5.90 10^6/uL Hemoglobin 10.6 L 13.5-17.5 g/dL Hematocrit 31.2 L 41.0-53.0 % Mean Corpuscular Volume 95.2 80.0-100.0 fL Mean Corpuscular Hemoglobin 32.4 H 28.0-32.0 pg Mean Corpuscular Hemoglobin Concent 34.0 32.0-36.0 g/dL Red Cell Distribution Width 14.4 H 11.8-14.3 % Platelet Count 174 140-450 10^3/uL Mean Platelet Volume 9.0 6.9-10.8 fL Neutrophils (%) (Auto) 67.5 37.0-80.0 % Lymphocytes (%) (Auto) 22.8 10.0-50.0 % Monocytes (%) (Auto) 8.0 0.0-12.0 % Eosinophils (%) (Auto) 0.5 0.0-7.0 % Basophils (%) (Auto) 1.2 0.0-2.0 % Neutrophils # (Auto) 4.0 1.6-8.6 10 ^3/uL Lymphocytes # (Auto) 1.3 0.4-5.4 10 ^3/uL Monocytes # (Auto) 0.5 0-1.3 10 ^3/uL Eosinophils # (Auto) 0 0-0.8 10 ^3/uL Basophils # (Auto) 0.1 0-0.2 10 ^3/uL Nucleated Red Blood Cells 0.1 % Portable AP view of the chest was performed. FINDINGS: Lung volumes are somewhat low. There is mild interstitial prominence. No pneumothorax or consolidative infiltrates. The heart is not enlarged. IMPRESSION: Mild interstitial prominence may be due to reactive airways disease or mild CHF. This appearance may be exaggerated by low lung volumes. SEPSIS Sepsis Screen Date sepsis recognized/suspect: Jan 12, 2025 Time Sepsis recognized/suspect: 630 Recent Procedure: No On Antibiotic Therapy: No Respiratory Rate >20: Yes Heart Rate >90: No Temp<36 C (96.8 F) or >38.3 C: No SBP <90 or MAP <65 mmHG: No New Acute Mental Status Change: No Is the patient on CPAP, BIPAP,: No Physician Orders Chest Portable (01/12/25 06:36) Urinalysis (01/12/25 06:36) Troponin-I Hs (01/12/25 09:36) * Cardiology Consult (01/12/25 07:32) Obtain Consent For: (01/12/25 08:43) Shave Both Groins (01/12/25 08:43) Provide Education Materials (01/12/25 08:43) Obtain Consent For Anesthesia (01/12/25 08:43) Platelet Monitoring (01/12/25 08:46) Heparin Per Standardized Proce (01/12/25 08:46) Discontinue All Im Injections (01/12/25 08:46) PTPTT (01/12/25 08:46) Complete Blood Count (01/12/25 08:46) Heparin Drip/D5w 100units/Ml (01/12/25 09:00) Stat Ekg For Chest Pain (01/12/25 08:46) Cl Left Heart Cath (01/12/25 08:50) Admit (01/12/25 08:40) Code Status (01/12/25 08:40) Hydrocodone-Acet 5/325mg Tab ([place] (01/12/25 08:45) Ondansetron Hcl (Zofran) (01/12/25 08:45) Docusate Sodium Capsule (Colace Capsule) (01/12/25 08:45) Complete Blood Count (01/13/25 04:00) Comprehensive Metabolic Panel (01/13/25 04:00) Npo (Nothing By Mouth) Diet (01/12/25 Breakfast) Echo 2d Mode Cardiac Dop (01/12/25 08:40) Condition: Critical (01/12/25 08:40) Acetaminophen Tablet (Tylenol Tablet) (01/12/25 08:45) Morphine Sulfate Injection (01/12/25 08:45) Nitroglycerin Sublingual (Ntrostat Subli (01/12/25 08:45) Morphine Sulfate Injection (01/12/25 08:45) Notify Of Changes From Base (01/12/25 08:40) Associate Medical Director For 24 Hours (01/12/25 08:40) Emergency Dysrhythmia Protocol (01/12/25 08:40) Rhythm Strips Once Every Shift (01/12/25 08:40) Oxygen By Nasal Cannula (01/12/25 08:40) Sodium Chloride 0.9% (01/12/25 08:45) Ipratropium Medneb (Atrovent Medneb) (01/12/25 12:00) Albuterol Medneb (Ventolin Medneb) (01/12/25 12:00) Glucose Blood (Accu-Chek Comfort Curve T (01/12/25 11:30) Insulin R (Human) (Insulin R) (01/12/25 22:00) Insulin R (Human) (Insulin R) (01/12/25 11:30) Dextrose 50% Syringe (01/12/25 08:45) Aspirin Enteric Coated Tablet (Ecotrin E (01/12/25 10:00) Hydrochlorothiazide Tablet (Hydrochlorot (01/12/25 10:00) Metoprolol Xl Succinate (Toprol Xl) (01/12/25 10:00) (Nf) Amlodipine Besylate (01/12/25 10:00) (Nf) Atorvastatin Calcium (01/12/25 22:00) (Nf) Glipizide (01/12/25 10:00) (Nf) Sitagliptin Phosphate (Januvia) (01/12/25 10:00) PTPTT (01/12/25 08:55) Lisinopril Tablet (Zestril Tablet) (01/12/25 10:00) Vital Signs Date Time Temp Pulse Resp B/P (MAP) Pulse Ox O2 Delivery O2 Flow Rate FiO2 01/12/25 08:13 82 164/86 01/12/25 08:00 98.4 81 17 164/86 (112) 95 98.4 01/12/25 08:00 85 01/12/25 07:54 27 90 Nasal Cannula* 4 36 01/12/25 07:35 90 01/12/25 07:34 90 01/12/25 07:13 110 186/107 01/12/25 07:08 94 01/12/25 06:34 99.6 84 28 201/113 95 99.6 Laboratory Tests Test 01/12/25 06:46 White Blood Count 5.9 10^3/uL (4.4-10.8) Medications Medications Dose Ordered Sig/Cory Route Start Time Stop Time Status Last Admin Dose Admin Heparin Sodium (Porcine) 5,000 units ONCE ONCE IV 01/12/25 07:45 01/12/25 07:46 DC 01/12/25 07:41 5,000 UNITS Lorazepam 1 mg ONCE ONCE IV 01/12/25 07:15 01/12/25 07:16 DC 01/12/25 07:46 1 MG Metoprolol Tartrate 5 mg ONCE ONCE IV 01/12/25 06:45 01/12/25 06:46 DC 01/12/25 07:13 5 MG Assessment/Plan Assessment/Plan Assessment: NSTEMI (non-ST elevated myocardial infarction), Hyperglycemia, Uncontrolled diabetes, Hypertension, Hyperlipidemia, Anxiety, Plan: Admit to Tele, Cardiology consult, Heparin drip, Breathing treatments, Supplemental oxygen as needed, Accu checks Q AC&HS with sliding scale, Home medications reconciled, Plan discussed with: Patient My Orders Orders - DANIELITO AGUILA TOPOGRAPHICAL SURVEYOR Procedure Category Date Status Time Admit ADMIT 01/12/25 Transmitted 08:40 Code Status CODE 01/12/25 Transmitted 08:40 Hydrocodone-Acet PHA 01/12/25 Logged 5/325mg Tab ([place] 08:45 Ondansetron Hcl PHA 01/12/25 Logged (Zofran) 08:45 Docusate Sodium PHA 01/12/25 Logged Capsule (Colace 08:45 Complete Blood Count LAB 01/13/25 Verified 04:00 Comprehensive LAB 01/13/25 Verified Metabolic Panel 04:00 Npo (Nothing By DIET 01/12/25 Transmitted Mouth) Diet Breakfast Echo 2d Mode Cardiac US 01/12/25 Logged DOP 08:40 Condition: Critical [facility] 01/12/25 In Process 08:40 Acetaminophen Tablet [facility] 01/12/25 Logged (Tylenol Tablet) 08:45 Morphine Sulfate [facility] 01/12/25 Logged Injection 08:45 Nitroglycerin PHA 01/12/25 Logged Sublingual (Ntrostat 08:45 Morphine Sulfate PHA 01/12/25 Logged Injection 08:45 Notify Of Changes [facility] 01/12/25 In Process From Base 08:40 Associate Medical Director For [facility] 01/12/25 In Process 24 Hours 08:40 Emergency Dysrhythmia [facility] 01/12/25 In Process Protocol 08:40 Rhythm Strips Once [facility] 01/12/25 In Process Every Shift 08:40 Oxygen By Nasal RT 01/12/25 Transmitted Cannula 08:40 Sodium Chloride 0.9% [facility] 01/12/25 Logged 08:45 Ipratropium Medneb PHA 01/12/25 Logged (Atrovent Medneb) 12:00 Albuterol Medneb PHA 01/12/25 Logged (Ventolin Medneb) 12:00 Glucose Blood [facility] 01/12/25 Logged (Accu-Chek Comfort 11:30 Insulin R (Human) PHA 01/12/25 Logged (Insulin R) 22:00 Insulin R (Human) PHA 01/12/25 Logged (Insulin R) 11:30 Dextrose 50% Syringe PHA 01/12/25 Logged 08:45 Aspirin Enteric PHA 01/12/25 Logged Coated Tablet 10:00 Hydrochlorothiazide PHA 01/12/25 Logged Tablet (Hydrochlorot 10:00 Metoprolol Xl PHA 01/12/25 Logged Succinate (Toprol Xl) 10:00 (Nf) Amlodipine PHA 01/12/25 Logged Besylate 10:00 (Nf) Atorvastatin PHA 01/12/25 Logged Calcium 22:00 (Nf) Glipizide PHA 01/12/25 Logged 10:00 (Nf) Sitagliptin PHA 01/12/25 Logged Phosphate (Januvia) 10:00 Lisinopril Tablet PHA 01/12/25 Logged (Zestril Tablet) 10:00 Date of Service: Jan 12, 2025 Billing Provider: DANIELITO AGUILA Common Visit Codes: [id number] INP/OBS CARE (MOD) DANIELITO AGIULA Jan 12, 2025 08:58
[2025-01-12 09:24] LABS: INR 1.0 (0.9-1.15); Partial Thromboplastin Time 26.6 SEC (24.5-34.5); Prothrombin Time 10.6 sec (9.3-11.8)
[2025-01-12] MEDS ORDERED: PATIENTS OWN MEDICATION (Amlodipine Besylate 1 TAB) PO SCH (10:00)
[2025-01-12] MEDS ORDERED: PATIENTS OWN MEDICATION (Glipizide 1 TAB) PO SCH (10:00)
[2025-01-12] MEDS: SODIUM CHLORIDE 0.9% 1,000 ML IV ONE (10:07)
[2025-01-12] MEDS: HEPARIN DRIP/D5W 100UNITS/ML 250 ML IV SCH (10:12)
[2025-01-12 10:14] LABS: Triglycerides 114.0 mg/dL (< 150)
[2025-01-12 10:15] LABS: Magnesium 1.7 mg/dL (1.6-2.6)
[2025-01-12 10:17] LABS: Cholesterol 252.0 mg/dL (< 200); HDL Cholesterol 70.0 mg/dL (40-59)
[2025-01-12 10:24] LABS: Hematocrit 39.8 % (41.0-53.0); Hemoglobin 13.0 g/dL (13.5-17.5); Mean Corpuscular Hemoglobin 31.0 pg (28.0-32.0); Mean Corpuscular Volume 94.9 fL (80.0-100.0); Nucleated Red Blood Cells % 0.1 %
[2025-01-12] MEDS: ACCU-CHEK COMFORT CURVE STRIP VI SCH (11:15)
[2025-01-12] MEDS: InsuLIN REG 1unit/0.01ml Soln (100units/ml) SC SCH ×2 (11:16→22:22)
[2025-01-12] MEDS: METOPROLOL SUCCINATE XL 50 MG TAB PO SCH (11:40)
[2025-01-12] MEDS: ASPirin-EC 81 mg tab PO SCH (11:40)
[2025-01-12] MEDS: hydroCHLOROthiazide 25 MG TAB PO SCH (11:41)
[2025-01-12] MEDS: LISINOPRIL 20 MG TAB PO SCH (11:41)
[2025-01-12 13:05] LABS: Urine Protein, UAD 2+ (Negative)
[2025-01-12] MEDS: IPRATROPIUM BROM 0.5 MG/2.5ML INH SOL NEB SCH (13:10)
[2025-01-12] MEDS: ALBUTEROL SULF 2.5 MG/0.5ML(0.5%) NEB SOLN NEB SCH (13:10)
[2025-01-12 13:16] LABS: Barbiturate Scree,Urine Neg (NEGATIVE); Opiate Scree,Urine Neg (NEGATIVE); Phencyclidine Screen, Urine Neg (NEGATIVE)
[2025-01-12 13:17] LABS: Amphetamine Screen, Urine Neg (NEGATIVE); Benzodiazephine Screen, Urine Neg (NEGATIVE); Cannabinoid Screen, Urine Neg (NEGATIVE); Cocaine Screen, Urine Neg (NEGATIVE)
[2025-01-12] MEDS: hydrALAZINE HCL 20 MG/ML VL IV PRN (14:02)
[2025-01-12] MEDS: IODIXANOL 320MG/ML 100ML BTL IV ONE (15:21)
[2025-01-12] MEDS: SODIUM CHL 0.9% 50 ML ONE ×2 (16:26→17:37)
[2025-01-12] MEDS: ANGIOMAX 250 MG VIAL IV ONE ×2 (16:26→17:37)
[2025-01-12] MEDS: VERAPAMIL 2.5MG/ML INJ 2ML VIAL IV ONE (16:26)
[2025-01-12] MEDS: LIDOCAINE 2%HCL (LOCAL ANESTH.) INJ 20ML MDV ONE (16:26)
[2025-01-12] MEDS: HEPARIN SODIUM (PORCINE) 5000 UNITS/ML 1ML VIAL ONE (16:29)
[2025-01-12 16:34] LABS: INR 0.98 (0.9-1.15); Partial Thromboplastin Time 26.8 SEC (24.5-34.5); Prothrombin Time 10.4 sec (9.3-11.8)
[2025-01-12] MEDS: MIDAZOLAM HCL 2MG/2ML 2ml VIAL (1mg/ml) ONE (16:39)
[2025-01-12] MEDS: fentaNYL CITRATE 100 MCG/2 ML VL ONE (16:39)
[2025-01-12] MEDS: EPTIFIBATIDE INJ (2MG/ML) 10ML VIAL IV ONE (17:09)
[2025-01-12] MEDS: LABETALOL HCL 5 MG/ML ML 20ML VIAL IV ONE (17:56)
[2025-01-12] MEDS: FUROSEMIDE 20 MG/2 ML VIAL ONE (18:20)
[2025-01-12] MEDS: CLOPIDOGREL BISULFATE 75 MG TAB ONE (18:20)
[2025-01-12] MEDS: BUDESONIDE (INHALATION) 0.5 MG/2 ML NEB ONE (18:21)
[2025-01-12] MEDS: MORPHINE SULFATE 4 MG/ML SYR/VIAL ONE (18:24)
[2025-01-12] MEDS: MORPHINE SULFATE 4 MG/ML SYR/VIAL IV ONE (18:30)
[2025-01-12] MEDS: FUROSEMIDE INJECTION 0 ML ONE (18:33)
[2025-01-12] MEDS: BUMETANIDE INJECTION 20 ML ONE (18:34)
--- NOTE | 2025-01-12 18:55 | DVH ---
CHEST RADIOGRAPH Indication: shortness of breath Technique: Single frontal view of the chest was obtained Comparison: XY CHEST PORTABLE on DOS: 01/12/25, XY CHEST PORTABLE on DOS: 11/16/24, CHEST TWO VIEWS ROUTI NE on DOS: 03/17/22 FINDINGS: Lines and Tubes: None Lungs: Interstitial opacities of bilateral lungs. 1.8 x 2.4 cm oval-shaped lucency overlying the left mid lung zone which is thought to be external to the patient. Pleura: No effusion. No pneumothorax. Cardiomediastinal contours: Borderline cardiomegaly Bones: No acute osseous abnormality. IMPRESSION: Interstitial Opacities of bilateral lung; worsened from prior imaging. Correlate for atypical pneumon ia/ pulmonary edema.
[2025-01-12] MEDS: BUMETANIDE 2.5mg/10ml (0.25 mg/ml) INJ IV ONE (19:15)
--- NOTE | 2025-01-12 20:23 | DVHSR ---
APPROVED REPORT EXAM: LIMITED Two-dimensional and M-mode echocardiogram. Blood Pressure: 164/86 mmHg INDICATION LIMITED FOR EF RISK FACTORS Obesity: Height: 5'10, Weight: 190 DIMENSIONS LVDd3.9 (3.8-5.7cm)LA (2D) (1.9-4.0cm)Aortic Root (2.0-3.7cm) LVDs2.8 (2.5-4.0cm)LA (MM) (1.9-4.0cm)Aortic Cusp Exc (1.5-2.0cm) EF (%) 53.0 (55-70%)Rt. Atrium (1.9-4.0cm)Asc. Aorta cm IVSd1.5 (0.7-1.1cm)RV (D) (1.8-2.4cm) PWd1.4 (0.7-1.1cm) Mitral Valve MitralMitral Stenosis E/A ratio0.02D MVAcm2 Other Information Quality : Technically LimitedRhythm : Technically limited study due to LIMITED FOR EF Conclusion MODERATE DEGREE LVH AND MODERATE DEGREE LV DIASTOLIC DYSFUNCTION LV EF IS 55% AND IS NORMAL APICAL WALL HYPOKINESIS NORMAL VALVES NORMAL RV FUNCTION NO EFFUSION
[2025-01-12] MEDS ORDERED: IPRATROPIUM BROM 0.5 MG/2.5ML INH SOL NEB PRN (22:00)
[2025-01-12] MEDS ORDERED: ATORVASTATIN 20 MG TAB PO SCH (22:00)
[2025-01-12] MEDS ORDERED: PATIENTS OWN MEDICATION (Atorvastatin Calcium 1 TAB) PO SCH (22:00)
[2025-01-12] MEDS ORDERED: ALBUTEROL SULF 2.5 MG/0.5ML(0.5%) NEB SOLN NEB PRN (22:00)
[2025-01-12] MEDS: ATORVASTATIN 20 MG TAB PO SCH (22:07)
[2025-01-12] MEDS: METOPROLOL TARTRATE 50 MG TAB PO SCH (22:07)
--- NOTE | 2025-01-12 22:42 | DVHINCON2 ---
Date Seen: Jan 12, 2025 Referring Physician MD Susan Reason for Consultation NSTEMI History of Present Illness This is a 54-year-old male with a past medical history of coronary artery disease status post PTCA x 2 TYLER in 2005 (on ASA), myocardial infarction, hypertension, dyslipidemia, type 2 diabetes mellitus, TIA, corneal transplant, and obesity who presents to the ED with a complaint of shortness of breath. The patient reports that when he woke up at approximately 5:00 a.m. this morning he began to feel severely short of breath. This prompted him to call EMS who then brought him to the ED for further evaluation. Initial twelve lead electrocardiogram reveals normal sinus rhythm with artifact and baseline wander (EKG machine reads as atrial fibrillation). The ED physician called a code STEMI overhead. The 12 lead electrocardiograms were sent over to the on-call STEMI doctor who deemed EKGs "not a STEMI". Initial troponin level of 2702ng/L with up trend and current peak level at 3427ng/L. The patient denies any chest pain at time of assessment. The patient states he does not see a wafer substrate tester in the outpatient setting. Chest x-ray showed mild interstitial prominence may be due to reactive airways disease or mild CHF. This appearance may be exaggerated by low lung volumes. Patient was admitted to the hospital. I am asked to consult on this patient. Past Medical History Past medical history reviewed. No other significant than mentioned above. Past Surgical History Bilateral cataract surgery Bilateral corneal transplant Allergies: Coded Allergies: NO KNOWN ALLERGIES (Unverified , 10/16/15) Home Meds Active Scripts Furosemide (Lasix) 20 Mg Tb, 1 TAB PO DAILY for 7 Days, #7 TAB 1 Refill Prov:FAITH HILL MD 11/18/24 Insulin Aspart Protamine & Asp (Insulin Aspart Protamine/ (70-30) 100 Unit/ml) 1 Inj Inj, 10 UNIT SC BIDBRS for 90 Days, #1 INJ Prov:FAITH HILL MD 11/18/24 Metoprolol Succinate (Toprol Xl) 50 Mg Tab, 50 MG PO BID for 90 Days, #180 TAB Prov:FAITH HILL MD 11/18/24 Lisinopril (Lisinopril) 20 Mg Tab, 20 MG PO DAILY for 90 Days, #90 TAB Prov:FAITH HILL MD 11/18/24 Hctz (Hydrochlorothiazide) 25 Mg Tab, 12.5 MG PO DAILY for 90 Days, #45 TAB Prov:FAITH HILL MD 11/18/24 Amlodipine Besylate (Amlodipine Besylate) 10 Mg Tab, 1 TAB PO DAILY for 90 Days, #90 TAB Prov:FAITH HILL MD 11/18/24 Sitagliptin Phosphate (Januvia) 100 Mg Tab, 1 TAB PO DAILY for 90 Days, #90 TAB Prov:FAITH HILL MD 11/18/24 Glipizide (Glipizide) 2.5 Mg Tab, 1 TAB PO DAILY for 90 Days, #90 TAB Prov:FAITH HILL MD 11/18/24 Reported Medications Atorvastatin Calcium (ATORVASTATIN CALCIUM) 40 Mg Tab, 1 TAB PO HS 11/16/24 Aspirin (Aspirin Low Dose) 81 Mg Tab, 1 TAB PO DAILY 11/16/24 Current Medications Current Medications Medications (Trade) Dose Ordered Sig/Cory Route PRN Reason Start Time Stop Time Status Last Admin Heparin Sodium/ Dextrose 250 ml @ 10 mls/hr Q24H IV 01/12/25 09:45 01/12/25 10:12 Acetaminophen/ Hydrocodone Bitart ([place] 5/325MG Tab) 1 tab Q4HP PRN PO MODERATE PAIN (4-6 PAIN SCALE) 01/12/25 08:45 Ondansetron HCl (Zofran) 4 mg Q4HP PRN IV NAUSEA / VOMITING 01/12/25 08:45 Docusate Sodium (Colace Capsule) 100 mg BIDPRN PRN PO FOR CONSTIPATION 01/12/25 08:45 Acetaminophen (Tylenol Tablet) 650 mg Q6HP PRN PO PAIN SCALE 1-3 OR TEMP>100.4 01/12/25 08:45 Morphine Sulfate 2 mg Q4HPRN PRN IV SEVERE PAIN (7-10 PAIN SCALE) 01/12/25 08:45 Nitroglycerin (Ntrostat Sublingual) 0.4 mg Q5MINP PRN SL FOR CHEST PAIN 01/12/25 08:45 Morphine Sulfate 2 mg Q30M PRN IV FOR CHEST PAIN 01/12/25 08:45 Ipratropium [place] (Atrovent Medneb) 0.5 mg Q6HWA NEB 01/12/25 12:00 Albuterol (Ventolin Medneb) 2.5 mg Q6HWA NEB 01/12/25 12:00 Diagnostic Test (Pha) (Accu-Chek Comfort Curve T) 1 strip ACHS 01/12/25 11:30 01/12/25 11:15 Insulin Human Regular (InsuLIN R) HS SC 01/12/25 22:00 Insulin Human Regular (InsuLIN R) AC SC 01/12/25 11:30 01/12/25 11:16 Dextrose 50 ml UD PRN IV Blood Sugar LESS THAN 60 01/12/25 08:45 Aspirin (Ecotrin Enteric Coated Tablet) 81 mg DAILY PO 01/12/25 10:00 01/12/25 11:40 Hydrochlorothiazide (hydroCHLOROthiazide TABLET) 12.5 mg DAILY PO 01/12/25 10:00 01/12/25 11:41 Metoprolol Succinate (Toprol Xl) 50 mg BID PO 01/12/25 10:00 01/12/25 11:40 Patient Own Medication 1 tab DAILY PO 01/12/25 10:00 UNV Patient Own Medication 1 tab HS PO 01/12/25 22:00 UNV Patient Own Medication 1 tab DAILY PO 01/12/25 10:00 UNV Patient Own Medication 1 tab DAILY PO 01/12/25 10:00 Lisinopril (Zestril Tablet) 20 mg DAILY PO 01/12/25 10:00 01/12/25 11:41 Amlodipine Besylate (Norvasc Tablet) 10 mg DAILY PO 01/13/25 10:00 Atorvastatin Calcium (Lipitor) 40 mg HS PO 01/12/25 22:00 Glipizide (Glucotrol Tablet) 2.5 mg DAILY PO 01/13/25 10:00 Review of Systems Constitutional: No symptom reported Ears, Nose, & Throat: No symptom reported Eyes: No symptom reported Neurological: No symptoms reported Pulmonary/Respiratory: Shortness of breath Cardiovascular: No symptom reported Gastrointestinal: No symptom reported Genitourinary: No symptom reported Musculoskeletal: No symptom reported Skin: No symptom reported Psychiatric: No symptom reported Endocrine: No symptom reported Hematologic/Lymphatic: No symptom reported Vital Signs Vital Signs Date Time Temp Pulse Resp B/P (MAP) Pulse Ox O2 Delivery O2 Flow Rate FiO2 01/12/25 12:00 79 01/12/25 11:41 166/95 01/12/25 10:00 98.4 17 91 98.4 01/12/25 09:45 6.0 01/12/25 07:54 Nasal Cannula* 36 Physical Exam GENERAL: Alert and oriented x 3. No acute distress. EYES: PERRL, EOMI. Anicteric. HENT: Moist mucous membranes. LUNGS: Clear to auscultation bilaterally. CARDIOVASCULAR: Regular rate and rhythm. ABDOMEN: Soft, nontender and nondistended. EXTREMITIES: BLE non pitting edema. NEUROLOGIC: No focal neurological deficits. SKIN: Warm, dry. Labs/Diagnostic Data Labs Test 01/12/25 11:13 01/12/25 09:37 01/12/25 07:46 01/12/25 06:46 Range/Units POC Glucose 314 H 70-106 mg/dl White Blood Count 9.0 # 4.4-10.8 10^3/uL Red Blood Count 4.20 L 4.5-5.90 10^6/uL Hemoglobin 13.0 #L 13.5-17.5 g/dL Hematocrit 39.8 #L 41.0-53.0 % Mean Corpuscular Volume 94.9 80.0-100.0 fL Mean Corpuscular Hemoglobin 31.0 28.0-32.0 pg Mean Corpuscular Hemoglobin Concent 32.7 32.0-36.0 g/dL Red Cell Distribution Width 14.6 H 11.8-14.3 % Platelet Count 227 140-450 10^3/uL Mean Platelet Volume 9.0 6.9-10.8 fL Neutrophils (%) (Auto) 84.4 H 37.0-80.0 % Lymphocytes (%) (Auto) 7.3 L 10.0-50.0 % Monocytes (%) (Auto) 7.2 0.0-12.0 % Eosinophils (%) (Auto) 0.1 0.0-7.0 % Basophils (%) (Auto) 1.0 0.0-2.0 % Neutrophils # (Auto) 7.6 1.6-8.6 10 ^3/uL Lymphocytes # (Auto) 0.7 0.4-5.4 10 ^3/uL Monocytes # (Auto) 0.6 0-1.3 10 ^3/uL Eosinophils # (Auto) 0 0-0.8 10 ^3/uL Basophils # (Auto) 0.1 0-0.2 10 ^3/uL Nucleated Red Blood Cells 0.1 % Magnesium Level 1.7 1.6-2.6 mg/dL Troponin I High Sensitivity 3330 *H </=54 ng/L Triglycerides Level 114 < 150 mg/dL Cholesterol Level 252 H < 200 mg/dL LDL Cholesterol 164 H < 100 mg/dL HDL Cholesterol 70 H 40-59 mg/dL Thyroid Stimulating Hormone (TSH) 1.45 0.55-4.78 uIU/mL Sodium Level 141 136-145 mmol/L Potassium Level 3.8 3.5-5.1 mmol/L Chloride Level 107 98-107 mmol/L Carbon Dioxide Level 21 20-31 mmol/L Anion Gap 13 5-15 Blood Urea Nitrogen 16 9-23 mg/dL Creatinine 1.27 0.700-1.30 mg/dL Glomerular Filtration Rate Calc 66 >90 mL/min BUN/Creatinine Ratio 12.6 10.0-20.0 Serum Glucose 306 H 74-106 mg/dL Calcium Level 8.8 8.7-10.4 mg/dL Prothrombin Time 10.6 9.3-11.8 sec Prothrombin Time INR 1.00 0.9-1.15 Activated Partial Thromboplast Time 26.6 24.5-34.5 SEC Assessment NSTEMI, rule out progressive coronary artery disease. Hypertensive urgency. Coronary artery disease status post PTCA X 2 TYLER (on ASA). Rule out structural heart disease. History myocardial infarction. Dyslipidemia. Type 2 diabetes mellitus. History of TIA. Obesity. Plan/Recommendation I agree with your ongoing assessment and care of plan. Patient has been seen by Karishma Godinez NP on my behalf, her and I discussed the plan with the patient. Transthoracic echocardiogram to evaluate cardiac function. Chest pain protocol. JUAN A score: 4 points. HEART score: 7 points (high score). Heparin drip per ACS protocol. BP control. Lipid-lowering agent. Close Cardiac surveillance. Coronary angiogram. Given the patient's clinical presentation, elevated troponin level, and previous cardiac history, the patient may benefit from a coronary angiogram with left heart catheterization. The procedure was discussed with the patient in full detail including risks and benefits. Risks include but are not limited to bleeding, contrast-induced nephropathy, coronary dissection, stroke, and even . The patient understands and is agreeable to undergo the procedure. We will schedule the patient at soonest availability on 01/12/2025. Additional plan as per the hospital course. Plan discussed with: Patient NYHA Physical activity limitations: NA Date of Service: Jan 12, 2025 Billing Provider: CRISTY CAMP MD Cardiology Common Codes: [id number] INP/OBS CARE (High) Cardiology Consultation Codes: [id number] CONSULT <45MIN CRISTY CAMP MD Jan 12, 2025 12:42
[2025-01-13] VITALS (38 sets, daily range): BP systolic 130–170; BP diastolic 54–88; PULSE 61–89; RESP 10–35; TEMP 97.8–99.9; O2SAT 89–100
--- NOTE | 2025-01-13 05:04 | DVHOP ---
TECHNIQUES PERFORMED: * Emergency case. * Ultrasound of the right radial artery. * Management of conscious sedation. * Insertion of a 6-[place]namese arterial line in the right radial artery * Left heart catheterization. * Left ventriculogram. * [place] selective left and right coronary angiography. COMPLICATIONS: None. FACILITIES AND GROUNDS DIRECTOR: Assisted by our staff over here is Gustavo Sofia. INDICATION: In a standard manner, the patient has been urgently brought to the laboratory helper. DESCRIPTION OF PROCEDURE: Risks and benefits all have been explained ultrasound was done. Lidocaine was given under aseptic precaution. A 6-[place]namese arterial line was placed. The patient was given 100 mcg of nitroglycerin, 2.5 mg of verapamil and 2000 units of heparin was given. We put a TIG catheter 5-Vietnamese 4.0 and left coronary angiography was done with the help of we also did right coronary angiography with the help of pigtail catheter. We have also done a left heart catheter with the help of pigtail catheter, complete left heart cath had been done. The left ventriculogram was done in the right anterior oblique view with a total of 20 mL dye. Post LV gram, left ventriculography has been performed with the help of pull-through technique. Aortic pressure was also performed and the procedure completed. IMPRESSION: * Normal left ventricle. * Left radial artery from proximal to mid region and over a long segment narrowing, the mid part of the lesion has about 99.9% stenosis, JUAN A grade 2 flow. * Circumflex artery is moderate sized artery. * The first obtuse marginal artery has 30% block. Second obtuse marginal artery 50% block. Angiogram of the right coronary artery is subtotally occluded more than 65 mm length stenosis with 99% narrowing. PLAN OF ACTION: Ejection fraction of the left ventricle is in the range of 50%. Apical wall akinesis is to undergo angioplasty, stenting of the left anterior descending artery. Evelin Henson MD MP/KODAK/ERICK/KRISTINE TID: [id number] RECEIPT: [id number] MTDD
--- NOTE | 2025-01-13 05:15 | DVHOP ---
DATE OF SURGERY: 01/12/2025 TECHNIQUE PERFORMED: * Emergency case. * Ultrasound of the right radial artery. * Management of the conscious sedation. * Insertion of 6-[place] arterial line from the right radial artery. * Left coronary angiography. * Mechanical thrombectomy of left anterior descending artery with 6-[place] catheter. * Balloon angioplasty of the proximal and mid region of the left anterior descending artery with 2.5 x 20 mm length semi-compliant balloon. * Stenting and angioplasty from proximal to mid region of the left anterior descending artery with 3.0 x 34 mm length [place] stent of Mobi. * Intravascular ultrasound of the left main and also of the left anterior descending artery stented region. * Balloon angioplasty of the left anterior descending artery, deployed stent with 3.0 x 20 mm length noncompliant balloon in mid artery, entire stent sized to 3.3 mm in size. * Intra-arterial administration of the Integrilin. COMPLICATIONS: None. ASSISTANTS: Assisted by our staff over here is Nakita Sofia Brian. INDICATIONS: Acute anterior wall myocardial infarction. The patient has 10/10 chest pain. DESCRIPTION OF PROCEDURE: Procedure was discussed in a standard manner and the patient was kept NPO. Risks, benefits, and alternatives have all been explained. He was brought to the petroleum refinery laborer. The right radial area thoroughly cleaned with soap and Betadine and lidocaine was given. A 6-[place] arterial line was placed. We put JL3.5 6-[place] guiding catheter and the left coronary angiography was done. We have given the intravenous adenosine and Angiomax. A Runthrough wire was passed and subsequently now we have put an [place] catheter and the thrombectomy was done. It went well. Subsequently after doing the mechanical thrombectomy, the balloon was passed 2.5 x 20 mm length semi-compliant balloon, balloon angioplasty was done in proximal and mid region of the left anterior descending artery and subsequently 2.5 x 30 mm length balloon and balloon angioplasty was done, balloon having discontinued after doing angioplasty. Subsequently now we have deployed a 3.0 x 34 mm length [place] stent by Mobi, inflated at 13 atmospheres, inflated for 31 seconds, subsequently for 15 seconds. Balloon deflated, balloon had been discontinued and subsequently we did intravascular ultrasound. There was still a gap between the stent and the media, so we put a noncompliant balloon in mid anterior artery from proximal to mid to distal region with 3.3 mm in size by taking a balloon up to 27 atmospheres. Procedure went well. Intracoronary administration of nicardipine was given and now subsequently we have given intra-arterial administration of Integrilin. Postprocedure in the recovery room, the patient ended up with pulmonary edema. Chest x-ray was done, which was confirmed. The patient was given Lasix 80 mg IV push followed by Bumex 4 mg IV push, and 4 mg of morphine was given. He did very well. He is now on oxygen but pulmonary edema has been relieved. Prior to performing the procedure #1, the left anterior descending artery with type C lesion, very long narrowing, 99% narrowed, JUAN A grade 2 flow. Postprocedure, 0% stenosis, no evidence of any residual stenosis, no spasm, no dissection, no thrombosis. Procedure went well. The preprocedure JUAN A grade 2 flow, postprocedure JUAN A grade 3 flow. Preprocedure, 99.9% narrowed, postprocedure 0% narrowing. PLAN OF ACTION: Aspirin, Plavix, beta-kahlil, cholesterol reducing medications. It has been noted that after procedure the patient ended up with pulmonary edema with a class 4. He was given Lasix followed by Bumex and he did very well. Evelin Henson MD MP/KENA/AMBER TID: [id number] RECEIPT: [id number] MTDD
[2025-01-13] MEDS: FUROSEMIDE 20 MG/2 ML VIAL IV SCH (05:30)
[2025-01-13 07:03] LABS: Hematocrit 40.6 % (41.0-53.0); Hemoglobin 14.0 g/dL (13.5-17.5); Mean Corpuscular Hemoglobin 32.3 pg (28.0-32.0); Mean Corpuscular Volume 93.9 fL (80.0-100.0); Nucleated Red Blood Cells % 0.3 %
[2025-01-13] MEDS: BUDESONIDE (INHALATION) 0.5 MG/2 ML NEB NEB SCH (07:11)
[2025-01-13 07:40] LABS: Alanine Aminotransferase 19 U/L (7-40); Albumin 4.0 g/dL (3.2-4.8); Alkaline Phosphatase 83 U/L (46-116); Anion Gap 12 (5-15); BUN/Creatinine Ratio 10.3 (10.0-20.0); Blood Urea Nitrogen 12 mg/dL (9-23); Calcium 8.8 mg/dL (8.7-10.4); Carbon Dioxide 25 mmol/L (20-31); Chloride 102 mmol/L (98-107); Potassium 3.6 mmol/L (3.5-5.1); Sodium 139 mmol/L (136-145); Total Protein 7.2 g/dL (5.7-8.2)
[2025-01-13 07:48] LABS: Bilirubin, Total 1.2 mg/dL (0.2-1.0); Glucose 191 mg/dL (74-106)
[2025-01-13] MEDS: LISINOPRIL 5 MG TAB PO SCH (10:00)
[2025-01-13] MEDS: glipiZIDE 5 MG TAB PO SCH (10:24)
[2025-01-13] MEDS: CLOPIDOGREL BISULFATE 75 MG TAB PO SCH (10:25)
--- NOTE | 2025-01-13 16:48 | DVHPNRES ---
Progress Note Date Seen: Jan 13, 2025 Resident Creating Document: EVAN CRANE ROSHAN Has the PT tested + for MRSA If YES, has PT been informed?: No Medical Necessity Reason Pt with a Central, PICC or Fol: No Subjective Review of Systems This is a 54-year-old male patient who presents to the emergency room with chief complaint of shortness of breath. The patient reports that when he woke up at approximately 5:00 a.m. this morning he began to feel severely short of breath. This prompted him to call EMS who then brought him to the emergency room for further evaluation. Initial twelve lead electrocardiogram reveals normal sinus rhythm with artifact and baseline wander (EKG machine reads as atrial fibrillation). The emergency room physician called a code STEMI overhead. The 12 lead electrocardiograms were sent over to the on-call STEMI doctor who deemed EKGs "not a STEMI". Initial troponin level of 2702ng/L with up trend and current peak level at 3427ng/L. The patient denies any chest pain at time of assessment. Significant past medical history includes coronary artery disease status post PTCA x 2 TYLER in 2005 (on ASA), myocardial infarction, hypertension, dyslipidemia, type 2 diabetes mellitus, TIA, corneal transplant, and obesity. The patient states he does not see a concrete hopper operator in the outpatient setting. Patient seen and examined at the bedside. Patient is still feeling complaining of shortness of breaths. Objective vital signs Vital Sign Date Time Temp Pulse Resp B/P (MAP) Pulse Ox O2 Delivery O2 Flow Rate FiO2 01/13/25 14:00 72 16 144/76 (98) 94 01/13/25 12:15 98.2 98.2 01/13/25 12:00 Nasal Cannula* 4 36 Total Intake and Output 01/12/25 01/12/25 01/13/25 15:00 23:00 07:00 Intake Total 255 ml 480 ml Output Total 575 ml 775 ml Balance 255 ml -575 ml -295 ml medications Current Medications Medications Dose Ordered Sig/Cory Route Start Time Stop Time Status Last Admin Dose Admin Acetaminophen/ Hydrocodone Bitart 1 tab Q4HP PRN PO 01/12/25 08:45 Ondansetron HCl 4 mg Q4HP PRN IV 01/12/25 08:45 Docusate Sodium 100 mg BIDPRN PRN PO 01/12/25 08:45 Acetaminophen 650 mg Q6HP PRN PO 01/12/25 08:45 Morphine Sulfate 2 mg Q4HPRN PRN IV 01/12/25 08:45 Nitroglycerin 0.4 mg Q5MINP PRN SL 01/12/25 08:45 Morphine Sulfate 2 mg Q30M PRN IV 01/12/25 08:45 Ipratropium [place] 0.5 mg Q6HWA NEB 01/12/25 12:00 01/13/25 12:00 0.5 MG Albuterol 2.5 mg Q6HWA NEB 01/12/25 12:00 01/13/25 12:00 2.5 MG Diagnostic Test (Pha) 1 strip ACHS 01/12/25 11:30 01/13/25 11:30 1 STRIP Insulin Human Regular HS SC 01/12/25 22:00 01/12/25 22:22 4 UNITS Insulin Human Regular AC SC 01/12/25 11:30 01/13/25 12:10 12 UNITS Dextrose 50 ml UD PRN IV 01/12/25 08:45 Hydrochlorothiazide 12.5 mg DAILY PO 01/12/25 10:00 01/13/25 10:25 12.5 MG Patient Own Medication 1 tab DAILY PO 01/12/25 10:00 UNV Patient Own Medication 1 tab HS PO 01/12/25 22:00 UNV Patient Own Medication 1 tab DAILY PO 01/12/25 10:00 UNV Patient Own Medication 1 tab DAILY PO 01/12/25 10:00 Amlodipine Besylate 10 mg DAILY PO 01/13/25 10:00 01/13/25 10:26 10 MG Glipizide 2.5 mg DAILY PO 01/13/25 10:00 01/13/25 10:24 2.5 MG Hydralazine HCl 10 mg Q6HP PRN IV 01/12/25 13:45 01/13/25 12:40 10 MG Budesonide 0.5 mg BID NEB 01/13/25 10:00 01/13/25 07:11 0.5 MG Aspirin 81 mg DAILY PO 01/13/25 10:00 01/13/25 10:21 81 MG Clopidogrel Bisulfate 75 mg DAILY PO 01/13/25 10:00 01/13/25 10:25 75 MG Furosemide 20 mg BIDD IV 01/13/25 06:00 01/13/25 05:30 20 MG Metoprolol Tartrate 50 mg BID PO 01/12/25 22:00 01/13/25 10:23 50 MG Lisinopril 10 mg DAILY PO 01/13/25 10:00 Atorvastatin Calcium 80 mg HS PO 01/12/25 22:00 01/12/25 22:07 80 MG Albuterol 2.5 mg Q4HPRN PRN NEB 01/12/25 22:00 Ipratropium [place] 0.5 mg Q4HPRN PRN NEB 01/12/25 22:00 Examination General Appearance: Alert, Oriented X3, Cooperative, No acute distress HEENT: Atraumatic, PERRLA, EOMI, Mucous membrane moist/pink Respiratory: Bilateral lower zone crackles Cardiovascular: Regular rate, Normal S1, Normal S2, No murmurs, no chest wall tenderness Abdominal: Normal bowel sounds, Soft, No tenderness, No hepatospenomegaly, No masses Extremities: Bilateral lower zone pedal edema Skin: No rashes, No breakdown, No significant lesion Neuro: Normal gait, Normal speech, Strength at 5/5 X4 ext, Normal tone, Sensation intact, Cranial nerves 3-12 NL, Reflexes 2+ Psych/Mental Status: Mental status NL, Mood NL laboratory and microbiology Laboratory Tests 01/13/25 05:41 Test 01/13/25 05:41 Range/Units Serum Glucose 191 #H 74-106 mg/dL Microbiology Date/Time Source Procedure Growth Status 01/13/25 04:30 Nose MRSA Screen - Final Complete Labs and/or images reviewed: Labs reviewed by me, Image(s) reviewed by me Problem List/Assessment/Plan Problem List/Assessment/Plan Acute hypoxic respiratory failure, likely due to diastolic heart failure Acute on chronic diastolic heart failure, likely due to ACS Ischemic heart disease NSTEMI type 1, rule out progressive coronary artery disease Status post PCI to LAD Hypertensive emergency Coronary artery disease status post PTCA X 2 TYLER (on ASA) Rule out structural heart disease History myocardial infarction Dyslipidemia Uncontrolled diabetes type 2 History of TIA Obesity * EKG upon admission showed ST-depression of inferior and lateral leads * Trop I was raised at 3000 * Echo showed EF 50% with moderate degree diastolic failure Plan/recommendation * Aspirin, clopidogrel and atorvastatin * Losartan, Jardiance, metoprolol, amlodipine and spironolactone * Insulin Lantus 15 units daily, lispro 5 units/mL, and regular moderate dose according to sliding scale * IV diuretic Lasix 40 mg b.i.d. * Oxygen through nasal cannula * Breathing treatment DIET: Cardiac diet DVT PROPHYLAXIS: Lovenox CODE STATUS: Goal of care discussed for more than 18 minutes, full code DISPOSITION: ALPA status Patient's status and plan discussed with the patient. Case discussed with Dr. Alvarez. Plan discussed with: Patient, Other (RN) Date of Service: Jan 13, 2025 Billing Provider: BRIELLE ALVAREZ MD Common Visit Codes: [id number] INP/OBS CARE(HIGH) EVAN CRANE RESDIJAVI Jan 13, 2025 16:47 BRIELLE ALVAREZ MD Jan 17, 2025 20:31
[2025-01-13] MEDS: INSULIN LANTUS (GLARGINE) 1 /0.01ml (100units/ml) SC ONE (17:00)
[2025-01-13] MEDS: INSULIN LISPRO (HUMAN) 100 UNITS/ML ML SC SCH (17:00)
[2025-01-13] MEDS: SPIRONOLACTONE 25 MG TAB PO ONE (18:17)
[2025-01-13] MEDS: EMPAGLIFLOZIN 10 MG TAB PO ONE (18:18)
[2025-01-13] MEDS: FUROSEMIDE 40 MG/4 ML VIAL IV SCH (18:19)
[2025-01-13] MEDS: LOSARTAN POTASSIUM 50 MG TAB PO ONE (19:42)
[2025-01-13] MEDS: ENOXAPARIN SOD 40 MG/0.4 ML SYRINGE SC ONE (21:14)
[2025-01-13] MEDS: MELATONIN 5 MG TAB PO ONE (21:17)
--- NOTE | 2025-01-13 22:58 | DVHPN2 ---
Progress Note - Dictate Date Seen: Jan 13, 2025 Medical Necessity Reason Pt with a Central, PICC or Fol: No Subjective Patient was seen and evaluated in follow-up in the ICU. Patient underwent left heart catheterization, [place] selective left and right coronary angiography, left coronary angiography, mechanical thrombectomy of left anterior descending artery, balloon angioplasty of the proximal and mid region of the left anterior descending artery, stenting and angioplasty from proximal to mid region of the left anterior descending artery, balloon angioplasty of the left anterior descending artery, deployed stent, intra-arterial administration of the Integrilin. Aspirin, Plavix, beta-kahlil, cholesterol reducing medications. It has been noted that after procedure the patient ended up with pulmonary edema with a class 4. He was given Lasix followed by Grace and he did very well. vital signs Vital Sign Date Time Temp Pulse Resp B/P (MAP) Pulse Ox O2 Delivery O2 Flow Rate FiO2 01/13/25 17:00 68 01/13/25 16:00 14 95 Nasal Cannula* 4 36 01/13/25 16:00 98.1 137/75 (95) 98.1 Total Intake and Output 01/12/25 01/12/25 01/13/25 15:00 23:00 07:00 Intake Total 255 ml 480 ml Output Total 575 ml 775 ml Balance 255 ml -575 ml -295 ml medications Current Medications Medications Dose Ordered Sig/Cory Route Start Time Stop Time Status Last Admin Dose Admin Ondansetron HCl 4 mg Q4HP PRN IV 01/12/25 08:45 Acetaminophen 650 mg Q6HP PRN PO 01/12/25 08:45 Nitroglycerin 0.4 mg Q5MINP PRN SL 01/12/25 08:45 Ipratropium [place] 0.5 mg Q6HWA NEB 01/12/25 12:00 01/13/25 12:00 0.5 MG Albuterol 2.5 mg Q6HWA NEB 01/12/25 12:00 01/13/25 12:00 2.5 MG Diagnostic Test (Pha) 1 strip ACHS 01/12/25 11:30 01/13/25 11:30 1 STRIP Insulin Human Regular AC SC 01/12/25 11:30 01/13/25 12:10 12 UNITS Dextrose 50 ml UD PRN IV 01/12/25 08:45 Patient Own Medication 1 tab DAILY PO 01/12/25 10:00 UNV Patient Own Medication 1 tab HS PO 01/12/25 22:00 UNV Patient Own Medication 1 tab DAILY PO 01/12/25 10:00 UNV Patient Own Medication 1 tab DAILY PO 01/12/25 10:00 Amlodipine Besylate 10 mg DAILY PO 01/13/25 10:00 01/13/25 10:26 10 MG Aspirin 81 mg DAILY PO 01/13/25 10:00 01/13/25 10:21 81 MG Clopidogrel Bisulfate 75 mg DAILY PO 01/13/25 10:00 01/13/25 10:25 75 MG Metoprolol Tartrate 50 mg BID PO 01/12/25 22:00 01/13/25 10:23 50 MG Lisinopril 10 mg DAILY PO 01/13/25 10:00 Atorvastatin Calcium 80 mg HS PO 01/12/25 22:00 01/12/25 22:07 80 MG Furosemide 40 mg BIDD IV 01/13/25 18:00 Empaglifozin 10 mg DAILY PO 01/14/25 10:00 Spironolactone 25 mg DAILY PO 01/14/25 10:00 Insulin Human Lispro 5 units AC SC 01/13/25 17:00 Insulin Glargine 15 units QAM SC 01/14/25 07:00 objective GENERAL: Alert and oriented x 3. No acute distress. EYES: PERRL, EOMI. Anicteric. HENT: Moist mucous membranes. LUNGS: Clear to auscultation bilaterally. CARDIOVASCULAR: Regular rate and rhythm. ABDOMEN: Soft, nontender and nondistended. EXTREMITIES: BLE non pitting edema. NEUROLOGIC: No focal neurological deficits. SKIN: Warm, dry. laboratory and microbiology Laboratory Tests 01/13/25 05:41 Test 01/13/25 05:41 Range/Units Serum Glucose 191 #H 74-106 mg/dL Problem List NSTEMI, rule out progressive coronary artery disease. Hypertensive urgency. Coronary artery disease status post PTCA X 2 TYLER (on ASA). Rule out structural heart disease. History myocardial infarction. Dyslipidemia. Type 2 diabetes mellitus. History of TIA. Obesity. Assessment/Plan Continued all current supportive medical care. Amlodipine, Losartan. Aspirin, Lipitor, Plavix, Metoprolol. DVT prophylactics. Diuretics with Lasix. Nebulized breathing treatments. Additional plan as per the hospital course. Critical care time of 45 minutes provided to include time spent evaluation of patient at bedside, when appropriate patient/family education for diagnosis, treatment plan, review of pertinent medical information and discussion of care with specialty providers and PCP. Plan discussed with: Patient CRISTY CAMP MD Jan 13, 2025 17:53
[2025-01-14] VITALS (32 sets, daily range): BP systolic 122–162; BP diastolic 59–87; PULSE 57–90; RESP 11–26; TEMP 97.9–100.1; O2SAT 91–99
[2025-01-14] MEDS: IPRATROPIUM BROM 0.5 MG/2.5ML INH SOL ONE (05:59)
[2025-01-14] MEDS: ALBUTEROL SULF 2.5 MG/0.5ML(0.5%) NEB SOLN ONE (06:00)
[2025-01-14 06:16] LABS: Hematocrit 37.3 % (41.0-53.0); Hemoglobin 12.7 g/dL (13.5-17.5); Mean Corpuscular Hemoglobin 31.7 pg (28.0-32.0); Mean Corpuscular Volume 93.0 fL (80.0-100.0); Nucleated Red Blood Cells % 0.0 %
[2025-01-14] MEDS: INSULIN LANTUS (GLARGINE) 1 /0.01ml (100units/ml) SC SCH (06:32)
[2025-01-14 06:35] LABS: Alanine Aminotransferase 13 U/L (7-40); Albumin 3.7 g/dL (3.2-4.8); Alkaline Phosphatase 75 U/L (46-116); Anion Gap 11 (5-15); BUN/Creatinine Ratio 10.6 (10.0-20.0); Blood Urea Nitrogen 13 mg/dL (9-23); Calcium 9.0 mg/dL (8.7-10.4); Carbon Dioxide 26 mmol/L (20-31); Chloride 102 mmol/L (98-107); Magnesium 1.8 mg/dL (1.6-2.6); Sodium 139 mmol/L (136-145); Total Protein 6.7 g/dL (5.7-8.2)
[2025-01-14 06:37] LABS: Bilirubin, Total 1.4 mg/dL (0.2-1.0); Glucose 153 mg/dL (74-106); Potassium 3.4 mmol/L (3.5-5.1)
[2025-01-14] MEDS ORDERED: MAGNESIUM SULFATE 1GM/100ML 100 ML IV ONE (07:15)
--- NOTE | 2025-01-14 07:58 | ECG ---
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
[2025-01-14] MEDS ORDERED: POTASSIUM CHLORIDE 40 MEQ, LIDOCAINE 1% (LOCAL ANESTH.) 4 ML in SODIUM CHL 0.9% 250 ML IV ONE (08:00)
[2025-01-14] MEDS: MAGNESIUM SULFATE 1GM/100ML 100 ML IV ONE (08:14)
[2025-01-14] MEDS: LOSARTAN POTASSIUM 50 MG TAB PO SCH (08:16)
[2025-01-14] MEDS: EMPAGLIFLOZIN 10 MG TAB PO SCH (08:16)
[2025-01-14] MEDS: SPIRONOLACTONE 25 MG TAB PO SCH (08:16)
[2025-01-14] MEDS: POTASSIUM EFFERVESENT TAB 25 MEQ PO ONE (08:18)
[2025-01-14] MEDS: ENOXAPARIN SOD 40 MG/0.4 ML SYRINGE SC SCH (08:18)
[2025-01-14] MEDS: FUROSEMIDE 20 MG/2 ML VIAL IV ONE (09:15)
[2025-01-14 10:07] LABS: COVID19 ANTIGEN SOFIA FIA NEGATIVE (NEGATIVE)
[2025-01-14] MEDS ORDERED: IPRATROPIUM BROM 0.5 MG/2.5ML INH SOL ONE (11:54)
[2025-01-14] MEDS ORDERED: ALBUTEROL SULF 2.5 MG/0.5ML(0.5%) NEB SOLN ONE (11:54)
[2025-01-14] MEDS: INSULIN LANTUS (GLARGINE) 1 /0.01ml (100units/ml) SC ONE (13:15)
--- NOTE | 2025-01-14 17:52 | DVHPNRES ---
Progress Note Date Seen: Jan 14, 2025 Resident Creating Document: EVAN CRANE ROSHAN Has the PT tested + for MRSA If YES, has PT been informed?: No Medical Necessity Reason Pt with a Central, PICC or Fol: No Subjective Review of Systems Patient seen and examined at the bedside. Patient is feeling better since admission but still has shortness of breaths and required oxygen. Objective vital signs Vital Sign Date Time Temp Pulse Resp B/P (MAP) Pulse Ox O2 Delivery O2 Flow Rate FiO2 01/14/25 17:00 98.2 59 18 145/80 (101) 97 98.2 01/14/25 14:00 Nasal Cannula* 1 24 Total Intake and Output 01/13/25 01/13/25 01/14/25 15:00 23:00 07:00 Intake Total 480 ml 240 ml Output Total 1200 ml 2580 ml Balance -720 ml -2340 ml medications Current Medications Medications Dose Ordered Sig/Cory Route Start Time Stop Time Status Last Admin Dose Admin Ondansetron HCl 4 mg Q4HP PRN IV 01/12/25 08:45 Acetaminophen 650 mg Q6HP PRN PO 01/12/25 08:45 Nitroglycerin 0.4 mg Q5MINP PRN SL 01/12/25 08:45 Ipratropium [place] 0.5 mg Q6HWA NEB 01/12/25 12:00 01/14/25 11:57 0.5 MG Albuterol 2.5 mg Q6HWA NEB 01/12/25 12:00 01/14/25 11:57 2.5 MG Diagnostic Test (Pha) 1 strip ACHS 01/12/25 11:30 01/14/25 12:00 1 STRIP Dextrose 50 ml UD PRN IV 01/12/25 08:45 Patient Own Medication 1 tab DAILY PO 01/12/25 10:00 UNV Patient Own Medication 1 tab HS PO 01/12/25 22:00 UNV Patient Own Medication 1 tab DAILY PO 01/12/25 10:00 UNV Aspirin 81 mg DAILY PO 01/13/25 10:00 01/14/25 08:17 81 MG Clopidogrel Bisulfate 75 mg DAILY PO 01/13/25 10:00 01/14/25 08:17 75 MG Metoprolol Tartrate 50 mg BID PO 01/12/25 22:00 01/14/25 08:16 50 MG Atorvastatin Calcium 80 mg HS PO 01/12/25 22:00 01/13/25 21:14 80 MG Furosemide 40 mg BIDD IV 01/13/25 18:00 01/14/25 06:15 40 MG Empaglifozin 10 mg DAILY PO 01/14/25 10:00 01/14/25 08:16 10 MG Spironolactone 25 mg DAILY PO 01/14/25 10:00 01/14/25 08:16 25 MG Enoxaparin Sodium 40 mg DAILY SC 01/14/25 10:00 01/14/25 08:18 40 MG Insulin Human Lispro AC SC 01/14/25 17:00 Insulin Glargine 20 units QAM SC 01/15/25 07:00 Losartan Potassium 100 mg DAILY PO 01/15/25 10:00 Insulin Human Lispro 6 units AC SC 01/14/25 17:00 Examination General Appearance: Alert, Oriented X3, Cooperative, No acute distress HEENT: Atraumatic, PERRLA, EOMI, Mucous membrane moist/pink Respiratory: Bilateral lower zone crackles Cardiovascular: Regular rate, Normal S1, Normal S2, No murmurs, no chest wall tenderness Abdominal: Normal bowel sounds, Soft, No tenderness, No hepatospenomegaly, No masses Extremities: Bilateral lower limb 2 pedal edema Skin: No rashes, No breakdown, No significant lesion Neuro: Normal gait, Normal speech, Strength at 5/5 X4 ext, Normal tone, Sensation intact, Cranial nerves 3-12 NL, Reflexes 2+ Psych/Mental Status: Mental status NL, Mood NL laboratory and microbiology Laboratory Tests 01/14/25 05:54 Test 01/14/25 05:54 Range/Units Serum Glucose 153 H 74-106 mg/dL Microbiology Date/Time Source Procedure Growth Status 01/13/25 04:30 Nose MRSA Screen - Final Complete Labs and/or images reviewed: Labs reviewed by me, Image(s) reviewed by me Problem List/Assessment/Plan Problem List/Assessment/Plan Acute hypoxic respiratory failure, likely due to diastolic heart failure Acute on chronic diastolic heart failure, likely due to ACS Ischemic heart disease NSTEMI type 1, rule out progressive coronary artery disease Status post PCI to LAD Hypertensive emergency Coronary artery disease status post PTCA X 2 TYLER (on ASA) Rule out structural heart disease History myocardial infarction Dyslipidemia Uncontrolled diabetes type 2 History of TIA Obesity * EKG upon admission showed ST-depression of inferior and lateral leads * Trop I was raised at 3000 * Echo showed EF 50% with moderate degree diastolic failure Plan/recommendation * Aspirin, clopidogrel and atorvastatin * Losartan, Jardiance, metoprolol, and spironolactone * Insulin Lantus 20 units daily, lispro 6 units/mL, and lispro according to sliding scale * IV diuretic Lasix 40 mg b.i.d. * Oxygen through nasal cannula * Breathing treatment DIET: Cardiac diet DVT PROPHYLAXIS: Lovenox CODE STATUS: Goal of care discussed for more than 18 minutes, full code DISPOSITION: Telemetry Patient's status and plan discussed with the patient. Case discussed with Dr. Alvarez. Plan discussed with: Patient, Other (RN) My Orders My Orders Orders - EVAN CRANE Procedure Category Date Status Time Enoxaparin Sodium PHA 01/14/25 In Process (Lovenox) 10:00 Transfer Orders XFER 01/14/25 Transmitted 07:02 Insulin Lispro PHA 01/14/25 In Process (Human) (Humalog) 17:00 Insulin Lantus PHA 01/15/25 In Process (Glargine) (Lantus) 07:00 Losartan Tablet PHA 01/15/25 In Process (Cozaar Tablet) 10:00 Insulin Lispro PHA 01/14/25 In Process (Human) (Humalog) 17:00 Complete Blood Count LAB 01/15/25 Verified 04:00 Comprehensive LAB 01/15/25 Verified Metabolic Panel 04:00 Date of Service: Jan 14, 2025 Billing Provider: BRIELLE ALVAREZ MD Common Visit Codes: [id number] INP/OBS CARE(HIGH) EVAN CRANE RESDIENT Jan 14, 2025 17:52 BRIELLE ALVAREZ MD Jan 17, 2025 20:44
[2025-01-14] MEDS: INSULIN LISPRO (HUMAN) 100 UNITS/ML ML SC SCH ×2 (18:54)
--- NOTE | 2025-01-14 22:39 | DVHPN2 ---
Progress Note - Dictate Date Seen: Jan 14, 2025 Has the PT tested + for MRSA If YES, has PT been informed?: No Medical Necessity Reason Pt with a Central, PICC or Fol: No Subjective Patient was seen and evaluated in follow up. Patient downgraded to tele bed. Patient is feeling better since admission but still has shortness of breath. Patient on 2 LPM NC. K 3.4. Covid and influenza are negative. Electrolytes were replaced. Telemetry reviewed. vital signs Vital Sign Date Time Temp Pulse Resp B/P (MAP) Pulse Ox O2 Delivery O2 Flow Rate FiO2 01/14/25 21:58 82 122/77 01/14/25 21:00 98.2 18 96 98.2 01/14/25 19:10 Nasal Cannula 2.0 01/14/25 19:10 28 Total Intake and Output 01/13/25 01/13/25 01/14/25 15:00 23:00 07:00 Intake Total 480 ml 240 ml Output Total 1200 ml 2580 ml Balance -720 ml -2340 ml medications Current Medications Medications Dose Ordered Sig/Cory Route Start Time Stop Time Status Last Admin Dose Admin Ondansetron HCl 4 mg Q4HP PRN IV 01/12/25 08:45 Acetaminophen 650 mg Q6HP PRN PO 01/12/25 08:45 Nitroglycerin 0.4 mg Q5MINP PRN SL 01/12/25 08:45 Ipratropium [place] 0.5 mg Q6HWA NEB 01/12/25 12:00 01/14/25 19:10 0.5 MG Albuterol 2.5 mg Q6HWA [facility] 01/12/25 12:00 01/14/25 19:10 2.5 MG Diagnostic Test (Pha) 1 strip ACHS 01/12/25 11:30 01/14/25 21:58 1 STRIP Dextrose 50 ml UD PRN IV 01/12/25 08:45 Patient Own Medication 1 tab DAILY PO 01/12/25 10:00 UNV Patient Own Medication 1 tab HS PO 01/12/25 22:00 UNV Patient Own Medication 1 tab DAILY PO 01/12/25 10:00 UNV Aspirin 81 mg DAILY PO 01/13/25 10:00 01/14/25 08:17 81 MG Clopidogrel Bisulfate 75 mg DAILY PO 01/13/25 10:00 01/14/25 08:17 75 MG Metoprolol Tartrate 50 mg BID PO 01/12/25 22:00 01/14/25 21:58 50 MG Atorvastatin Calcium 80 mg HS PO 01/12/25 22:00 01/14/25 21:58 80 MG Furosemide 40 mg BIDD IV 01/13/25 18:00 01/14/25 18:55 40 MG Empaglifozin 10 mg DAILY PO 01/14/25 10:00 01/14/25 08:16 10 MG Spironolactone 25 mg DAILY PO 01/14/25 10:00 01/14/25 08:16 25 MG Enoxaparin Sodium 40 mg DAILY SC 01/14/25 10:00 01/14/25 08:18 40 MG Insulin Human Lispro AC SC 01/14/25 17:00 01/14/25 18:54 1 UNITS Insulin Glargine 20 units QAM SC 01/15/25 07:00 Losartan Potassium 100 mg DAILY PO 01/15/25 10:00 Insulin Human Lispro 6 units AC SC 01/14/25 17:00 01/14/25 18:54 6 UNITS objective GENERAL: Alert and oriented x 3. No acute distress. EYES: PERRL, EOMI. Anicteric. HENT: Moist mucous membranes. LUNGS: Clear to auscultation bilaterally. CARDIOVASCULAR: Regular rate and rhythm. ABDOMEN: Soft, nontender and nondistended. EXTREMITIES: BLE non pitting edema. NEUROLOGIC: No focal neurological deficits. SKIN: Warm, dry. laboratory and microbiology Laboratory Tests 01/14/25 05:54 Test 01/14/25 05:54 Range/Units Serum Glucose 153 H 74-106 mg/dL Problem List NSTEMI, rule out progressive coronary artery disease. Hypertensive urgency. Coronary artery disease status post PTCA X 2 TYLER (on ASA). Rule out structural heart disease. History myocardial infarction. Dyslipidemia. Type 2 diabetes mellitus. History of TIA. Obesity. Assessment/Plan Continued all current supportive medical care. Aspirin, Lipitor, Plavix, Metoprolol. DVT prophylactics. Diuretics with Lasix. Losartan. Nebulized breathing treatments. Additional plan as per the hospital course. Plan discussed with: Patient CRISTY CAMP MD Jan 14, 2025 22:39
[2025-01-15] VITALS (11 sets, daily range): BP systolic 125–149; BP diastolic 73–94; PULSE 54–70; RESP 16–18; TEMP 36.4; O2SAT 92–99
[2025-01-15] MEDS ORDERED: MELATONIN 5 MG TAB PO ONE
[2025-01-15 06:39] LABS: Hematocrit 36.9 % (41.0-53.0); Hemoglobin 12.5 g/dL (13.5-17.5); Mean Corpuscular Hemoglobin 31.9 pg (28.0-32.0); Mean Corpuscular Volume 94.0 fL (80.0-100.0); Nucleated Red Blood Cells % 0.0 %
[2025-01-15 06:52] LABS: Alanine Aminotransferase 14 U/L (7-40); Albumin 3.8 g/dL (3.2-4.8); Alkaline Phosphatase 70 U/L (46-116); Anion Gap 10 (5-15); BUN/Creatinine Ratio 11.4 (10.0-20.0); Blood Urea Nitrogen 15 mg/dL (9-23); Calcium 8.9 mg/dL (8.7-10.4); Carbon Dioxide 26 mmol/L (20-31); Chloride 100 mmol/L (98-107); Potassium 3.6 mmol/L (3.5-5.1); Total Protein 6.8 g/dL (5.7-8.2)
[2025-01-15 06:53] LABS: Bilirubin, Total 1.0 mg/dL (0.2-1.0)
[2025-01-15 06:54] LABS: Glucose 237 mg/dL (74-106); Sodium 136 mmol/L (136-145)
[2025-01-15] MEDS: INSULIN LANTUS (GLARGINE) 1 /0.01ml (100units/ml) SC SCH (06:56)
[2025-01-15] MEDS: INSULIN LISPRO (HUMAN) 100 UNITS/ML ML SC SCH (06:59)
[2025-01-15] MEDS ORDERED: INSULIN LANTUS (GLARGINE) 1 /0.01ml (100units/ml) SC SCH (07:00)
[2025-01-15] MEDS: LOSARTAN POTASSIUM 50 MG TAB PO SCH (11:24)
--- NOTE | 2025-01-15 14:54 | ECG ---
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
[2025-01-15] MEDS ORDERED: ATOR40TA52 PO (15:31)
[2025-01-15] MEDS ORDERED: SITA100T34 PO (15:31)
[2025-01-15] MEDS ORDERED: LOSA-534 PO (15:31)
[2025-01-15] MEDS ORDERED: SPIR25TA8 PO (15:31)
[2025-01-15] MEDS ORDERED: ASPI-498 OR (15:31)
[2025-01-15] MEDS ORDERED: INSUINJ37 SC (15:31)
[2025-01-15] MEDS ORDERED: METO1TAB9 PO (15:31)
[2025-01-15] MEDS ORDERED: CLOP75TA70 PO (15:31)
[2025-01-15] MEDS ORDERED: METF-490 PO (15:31)
[2025-01-15] MEDS ORDERED: FURO1TAB33 GT (15:31)
[2025-01-15] MEDS ORDERED: INSLISPI SC (15:31)
[2025-01-15] MEDS ORDERED: AMLO1TAB22 PO (15:31)
[2025-01-15] MEDS ORDERED: LANC-347 XX (15:33)
[2025-01-15] MEDS ORDERED: GLUC-224 VI (15:33)
[2025-01-15] MEDS ORDERED: EMPA1TAB PO (15:33)
--- NOTE | 2025-01-15 22:30 | DVHPN2 ---
Progress Note - Dictate Date Seen: Jan 15, 2025 Has the PT tested + for MRSA If YES, has PT been informed?: No Medical Necessity Reason Pt with a Central, PICC or Fol: No Subjective Patient was seen and evaluated in follow up. Patient on supplemental O2. Echocardiogram shows an EF of 55%. Patient is cardiac stable for discharge. Telemetry reviewed. vital signs Vital Sign Date Time Temp Pulse Resp B/P (MAP) Pulse Ox O2 Delivery O2 Flow Rate FiO2 01/15/25 15:46 36.4 67 01/15/25 13:00 16 137/86 (103) 92 01/15/25 12:50 Room Air 0.0 01/15/25 12:50 N/A Total Intake and Output 01/14/25 01/14/25 01/15/25 15:00 23:00 07:00 Intake Total 100 ml 420 ml 700 ml Output Total 450 ml 650 ml Balance 100 ml -30 ml 50 ml medications Current Medications Medications Dose Ordered Sig/Cory Route Start Time Stop Time Status Last Admin Dose Admin Patient Own Medication 1 tab DAILY PO 01/12/25 10:00 UNV Patient Own Medication 1 tab HS PO 01/12/25 22:00 UNV Patient Own Medication 1 tab DAILY PO 01/12/25 10:00 UNV objective GENERAL: Alert and oriented x 3. No acute distress. EYES: PERRL, EOMI. Anicteric. HENT: Moist mucous membranes. LUNGS: Clear to auscultation bilaterally. CARDIOVASCULAR: Regular rate and rhythm. ABDOMEN: Soft, nontender and nondistended. EXTREMITIES: BLE non pitting edema. NEUROLOGIC: No focal neurological deficits. SKIN: Warm, dry. laboratory and microbiology Laboratory Tests 01/15/25 05:01 Test 01/15/25 05:01 Range/Units Serum Glucose 237 H 74-106 mg/dL Problem List NSTEMI, rule out progressive coronary artery disease. Hypertensive urgency. Coronary artery disease status post PTCA X 2 TYLER (on ASA). Rule out structural heart disease. History myocardial infarction. Dyslipidemia. Type 2 diabetes mellitus. History of TIA. Obesity. Assessment/Plan Continued all current supportive medical care. Aspirin, Lipitor, Plavix, Metoprolol. DVT prophylactics. Diuretics with Lasix. Losartan. Nebulized breathing treatments. Additional plan as per the hospital course. Plan discussed with: Patient CRISTY CAMP MD Jan 15, 2025 22:30
== END 2025-01-15 17:38 | disposition home or self-care (01) | DRG 174 ==
LOC: ER 06:25 → EDBD 06:25 → OVERFLOW 08:40 → DOU IN ADS 18:35 → TELE-WESTW 01-14 14:23
PROVIDERS: ADMIT Student in an Organized Health Care Education/Training Program; ATTEND Specialist
PROC: 5A09357 Assistance with Respiratory Ventilation, Less than 24 Consecutive Hours, Continuous Positive Airway Pressure (ICD-10-PCS; principal; 2025-01-12)
PROC: 027034Z Dilation of Coronary Artery, One Artery with Drug-eluting Intraluminal Device, Percutaneous Approach (ICD-10-PCS; 2025-01-12)
PROC: 02C03ZZ Extirpation of Matter from Coronary Artery, One Artery, Percutaneous Approach (ICD-10-PCS; 2025-01-12)
PROC: 02703ZZ Dilation of Coronary Artery, One Artery, Percutaneous Approach (ICD-10-PCS; 2025-01-12)
PROC: B34HZZZ Ultrasonography of Right Upper Extremity Arteries (ICD-10-PCS; 2025-01-12)
PROC: B241ZZ3 Ultrasonography of Multiple Coronary Arteries, Intravascular (ICD-10-PCS; 2025-01-12)
PROC: 3E033PZ Introduction of Platelet Inhibitor into Peripheral Vein, Percutaneous Approach (ICD-10-PCS; 2025-01-12)
PROC: 4A023N7 Measurement of Cardiac Sampling and Pressure, Left Heart, Percutaneous Approach (ICD-10-PCS; 2025-01-12)
PROC: B211YZZ Fluoroscopy of Multiple Coronary Arteries using Other Contrast (ICD-10-PCS; 2025-01-12)
PROC: B215YZZ Fluoroscopy of Left Heart using Other Contrast (ICD-10-PCS; 2025-01-12)
PROC: 5A09357 Assistance with Respiratory Ventilation, Less than 24 Consecutive Hours, Continuous Positive Airway Pressure (ICD-10-PCS; 2025-01-13)
DX: I21.4 Non-ST elevation (NSTEMI) myocardial infarction (principal); J96.01 Acute respiratory failure with hypoxia; I50.33 Acute on chronic diastolic (congestive) heart failure; E11.65 Type 2 diabetes mellitus with hyperglycemia; E66.9 Obesity, unspecified; Z94.7 Corneal transplant status; I48.91 Unspecified atrial fibrillation; J81.1 Chronic pulmonary edema; Z68.30 Body mass index [BMI] 30.0-30.9, adult; E78.5 Hyperlipidemia, unspecified; F41.9 Anxiety disorder, unspecified; I16.0 Hypertensive urgency; Z20.822 Contact with and (suspected) exposure to COVID-19; J98.4 Other disorders of lung; I25.10 Atherosclerotic heart disease of native coronary artery without angina pectoris; Z86.73 Personal history of transient ischemic attack (TIA), and cerebral infarction without residual deficits
CPT/HCPCS: 36415; 71045; 80048; 80053; 80061; 80307; 81001; 82962; 83036; 83735; 84443; 84484; 85025; 85610; 85730; 87081; 87426; 87804; 92941; 92973; 92978; 93005; 93306; 93458; 94640; 96365; 96372; 96375; 99152; 99291; 99292; G0378; J1815; J2003; J2250; Q9967